=== PATIENT | male | born 1945 | race Caucasian/White ===

== ENCOUNTER → 2016-06-29 | Outpatient (CLI) | payer OTHER ==
[~2016-06-29] MED LIST: ALLOPURINOL 30300 M2 PO; BYSTOLIC10 MG PO; CHLORTHALIDONE25 MG PO; GLUCOPHAGE XR500 MG PO; LESCOL XL80 MG PO; QUINU10 PD PO; VITAMINC500 PO; [UNRECOGNIZED DRUG - OTHER] PO
== END ==
LOC: HYPER 07:13
DX: I87.313 Chronic venous hypertension (idiopathic) with ulcer of bilateral lower extremity (principal); L97.821 Non-pressure chronic ulcer of other part of left lower leg limited to breakdown of skin; E11.622 Type 2 diabetes mellitus with other skin ulcer; L97.811 Non-pressure chronic ulcer of other part of right lower leg limited to breakdown of skin; I89.0 Lymphedema, not elsewhere classified; M10.9 Gout, unspecified; E78.5 Hyperlipidemia, unspecified; E66.9 Obesity, unspecified; G47.33 Obstructive sleep apnea (adult) (pediatric); E11.51 Type 2 diabetes mellitus with diabetic peripheral angiopathy without gangrene; M19.90 Unspecified osteoarthritis, unspecified site

== ENCOUNTER → 2016-08-12 | Outpatient (CLI) | payer OTHER | LOC: HYPER 07:09 | DX: L89.890 Pressure ulcer of other site, unstageable (principal); I87.311 Chronic venous hypertension (idiopathic) with ulcer of right lower extremity; L97.111 Non-pressure chronic ulcer of right thigh limited to breakdown of skin; E11.622 Type 2 diabetes mellitus with other skin ulcer; I89.0 Lymphedema, not elsewhere classified; M10.9 Gout, unspecified; E78.5 Hyperlipidemia, unspecified; G47.33 Obstructive sleep apnea (adult) (pediatric); I73.9 Peripheral vascular disease, unspecified; M19.90 Unspecified osteoarthritis, unspecified site; Z98.49 Cataract extraction status, unspecified eye ==

== ENCOUNTER → 2016-09-11 | Outpatient (CLI) | payer OTHER | LOC: HYPER 08:06 | DX: I87.311 Chronic venous hypertension (idiopathic) with ulcer of right lower extremity (principal); E11.622 Type 2 diabetes mellitus with other skin ulcer; L97.111 Non-pressure chronic ulcer of right thigh limited to breakdown of skin; I89.0 Lymphedema, not elsewhere classified; R60.9 Edema, unspecified; E78.5 Hyperlipidemia, unspecified; E66.9 Obesity, unspecified; E11.51 Type 2 diabetes mellitus with diabetic peripheral angiopathy without gangrene; M19.90 Unspecified osteoarthritis, unspecified site ==

== ENCOUNTER → 2016-10-06 | Outpatient (CLI) | payer OTHER | LOC: HYPER 07:02 | DX: I87.311 Chronic venous hypertension (idiopathic) with ulcer of right lower extremity (principal); E11.622 Type 2 diabetes mellitus with other skin ulcer; L97.811 Non-pressure chronic ulcer of other part of right lower leg limited to breakdown of skin; I89.0 Lymphedema, not elsewhere classified; R60.0 Localized edema; E78.5 Hyperlipidemia, unspecified; E66.9 Obesity, unspecified; M19.90 Unspecified osteoarthritis, unspecified site ==

== ENCOUNTER → 2016-10-16 | Outpatient (CLI) | payer OTHER | LOC: HYPER 07:51 | DX: L89.890 Pressure ulcer of other site, unstageable (principal); I87.311 Chronic venous hypertension (idiopathic) with ulcer of right lower extremity; L97.312 Non-pressure chronic ulcer of right ankle with fat layer exposed; E11.622 Type 2 diabetes mellitus with other skin ulcer; E11.51 Type 2 diabetes mellitus with diabetic peripheral angiopathy without gangrene; I89.0 Lymphedema, not elsewhere classified; M10.9 Gout, unspecified; E78.5 Hyperlipidemia, unspecified; E66.9 Obesity, unspecified; G47.33 Obstructive sleep apnea (adult) (pediatric); M19.90 Unspecified osteoarthritis, unspecified site; Z68.41 Body mass index [BMI] 40.0-44.9, adult; Z98.49 Cataract extraction status, unspecified eye; Z79.4 Long term (current) use of insulin; Z79.84 Long term (current) use of oral hypoglycemic drugs ==

== ENCOUNTER → 2016-10-21 | Outpatient (CLI) | payer OTHER | LOC: HYPER 06:55 | DX: E11.622 Type 2 diabetes mellitus with other skin ulcer (principal); L97.312 Non-pressure chronic ulcer of right ankle with fat layer exposed; I87.311 Chronic venous hypertension (idiopathic) with ulcer of right lower extremity; E11.621 Type 2 diabetes mellitus with foot ulcer; L97.511 Non-pressure chronic ulcer of other part of right foot limited to breakdown of skin; L89.899 Pressure ulcer of other site, unspecified stage; I89.0 Lymphedema, not elsewhere classified; Z79.84 Long term (current) use of oral hypoglycemic drugs; Z79.4 Long term (current) use of insulin ==

== ENCOUNTER → 2016-10-29 | Outpatient (CLI) | payer OTHER | LOC: HYPER 06:57 | DX: E11.621 Type 2 diabetes mellitus with foot ulcer (principal); L97.511 Non-pressure chronic ulcer of other part of right foot limited to breakdown of skin; I87.311 Chronic venous hypertension (idiopathic) with ulcer of right lower extremity; E11.622 Type 2 diabetes mellitus with other skin ulcer; L97.312 Non-pressure chronic ulcer of right ankle with fat layer exposed; I89.0 Lymphedema, not elsewhere classified; R60.0 Localized edema; M19.90 Unspecified osteoarthritis, unspecified site; Z79.4 Long term (current) use of insulin; Z79.84 Long term (current) use of oral hypoglycemic drugs ==

== ENCOUNTER → 2016-11-05 | Outpatient (CLI) | payer OTHER | LOC: HYPER 07:00 | DX: E11.622 Type 2 diabetes mellitus with other skin ulcer (principal); L97.312 Non-pressure chronic ulcer of right ankle with fat layer exposed; I89.0 Lymphedema, not elsewhere classified; I87.311 Chronic venous hypertension (idiopathic) with ulcer of right lower extremity; E78.5 Hyperlipidemia, unspecified; E66.9 Obesity, unspecified; Z68.41 Body mass index [BMI] 40.0-44.9, adult; G47.33 Obstructive sleep apnea (adult) (pediatric); E11.51 Type 2 diabetes mellitus with diabetic peripheral angiopathy without gangrene; M19.90 Unspecified osteoarthritis, unspecified site; Z79.4 Long term (current) use of insulin; Z79.84 Long term (current) use of oral hypoglycemic drugs ==

== ENCOUNTER → 2016-11-17 | Outpatient (CLI) | payer OTHER | LOC: HYPER 07:04 | DX: I87.311 Chronic venous hypertension (idiopathic) with ulcer of right lower extremity (principal); E11.622 Type 2 diabetes mellitus with other skin ulcer; L97.312 Non-pressure chronic ulcer of right ankle with fat layer exposed; I89.0 Lymphedema, not elsewhere classified; R60.0 Localized edema; Z79.4 Long term (current) use of insulin; Z79.84 Long term (current) use of oral hypoglycemic drugs; E78.5 Hyperlipidemia, unspecified; E11.51 Type 2 diabetes mellitus with diabetic peripheral angiopathy without gangrene; M19.90 Unspecified osteoarthritis, unspecified site ==

== ENCOUNTER → 2016-12-01 | Outpatient (CLI) | payer OTHER | LOC: HYPER 07:09 | DX: E11.622 Type 2 diabetes mellitus with other skin ulcer (principal); L97.312 Non-pressure chronic ulcer of right ankle with fat layer exposed; I89.0 Lymphedema, not elsewhere classified; E78.5 Hyperlipidemia, unspecified; E66.9 Obesity, unspecified; G47.33 Obstructive sleep apnea (adult) (pediatric); E11.51 Type 2 diabetes mellitus with diabetic peripheral angiopathy without gangrene; M19.90 Unspecified osteoarthritis, unspecified site; I87.2 Venous insufficiency (chronic) (peripheral); Z79.84 Long term (current) use of oral hypoglycemic drugs; Z79.4 Long term (current) use of insulin ==

== ENCOUNTER → 2017-01-19 | Outpatient (CLI) | payer OTHER | LOC: HYPER 06:46 | DX: E11.622 Type 2 diabetes mellitus with other skin ulcer (principal); L97.312 Non-pressure chronic ulcer of right ankle with fat layer exposed; L97.821 Non-pressure chronic ulcer of other part of left lower leg limited to breakdown of skin; I87.313 Chronic venous hypertension (idiopathic) with ulcer of bilateral lower extremity; I89.0 Lymphedema, not elsewhere classified; E78.5 Hyperlipidemia, unspecified; E66.9 Obesity, unspecified; G47.33 Obstructive sleep apnea (adult) (pediatric); E11.51 Type 2 diabetes mellitus with diabetic peripheral angiopathy without gangrene; M19.90 Unspecified osteoarthritis, unspecified site; Z79.4 Long term (current) use of insulin; Z79.84 Long term (current) use of oral hypoglycemic drugs; Z68.41 Body mass index [BMI] 40.0-44.9, adult ==

== ENCOUNTER → 2017-03-02 | Outpatient (CLI) | payer OTHER ==
[~2017-03-02] MED LIST changes: +ASPIRIN81 M2 PO; +CARDURA4 MG PO; +CENTRUM SILVER1 EAC4 PO; +ERGOCALCIF50000 UNIT PO; +HOME MEDICATION SUBQ; +HUMALOG100 UNIT/1 SUBQ; +IRON325 PO; +KLOR-CON M2020 MEQ PO; +LANTUS100 UNIT/M SUBQ; +LASIX 20 MG TAB20 MG PO; +LOSARTAN POTASS50 MG PO; +MAGOX 400400 MG PO; +METFORMIN HCL500 MG PO; +PROTONIX 20 MG20 M1 PO; +TYLENOL EXTRA500 MG PO; +VOLTAREN GEL 1100 G2 TOP
== END ==
LOC: HYPER 07:01
DX: I87.313 Chronic venous hypertension (idiopathic) with ulcer of bilateral lower extremity (principal); L97.811 Non-pressure chronic ulcer of other part of right lower leg limited to breakdown of skin; L97.822 Non-pressure chronic ulcer of other part of left lower leg with fat layer exposed; L97.312 Non-pressure chronic ulcer of right ankle with fat layer exposed; I89.0 Lymphedema, not elsewhere classified; E11.622 Type 2 diabetes mellitus with other skin ulcer; M10.9 Gout, unspecified; E78.5 Hyperlipidemia, unspecified; E66.9 Obesity, unspecified; G47.33 Obstructive sleep apnea (adult) (pediatric); E11.51 Type 2 diabetes mellitus with diabetic peripheral angiopathy without gangrene; M19.90 Unspecified osteoarthritis, unspecified site; Z86.12 Personal history of poliomyelitis; Z79.4 Long term (current) use of insulin; Z79.84 Long term (current) use of oral hypoglycemic drugs; Z98.49 Cataract extraction status, unspecified eye

== ENCOUNTER → 2017-03-31 | Outpatient (CLI) | payer OTHER | LOC: HYPER 03-16 11:44 | DX: I87.313 Chronic venous hypertension (idiopathic) with ulcer of bilateral lower extremity (principal); L97.822 Non-pressure chronic ulcer of other part of left lower leg with fat layer exposed; L97.811 Non-pressure chronic ulcer of other part of right lower leg limited to breakdown of skin; L97.312 Non-pressure chronic ulcer of right ankle with fat layer exposed; I89.0 Lymphedema, not elsewhere classified; E11.622 Type 2 diabetes mellitus with other skin ulcer; E78.5 Hyperlipidemia, unspecified; E66.9 Obesity, unspecified; G47.33 Obstructive sleep apnea (adult) (pediatric); E11.51 Type 2 diabetes mellitus with diabetic peripheral angiopathy without gangrene; M19.90 Unspecified osteoarthritis, unspecified site; Z86.12 Personal history of poliomyelitis; Z79.4 Long term (current) use of insulin; Z79.84 Long term (current) use of oral hypoglycemic drugs; Z98.49 Cataract extraction status, unspecified eye ==

== ENCOUNTER 2017-04-05 13:31 | Inpatient (IN) | payer OTHER ==
[~2017-04-05] VITALS: Ht 175.3 cm; Wt 99.4 kg
--- NOTE | ~2017-04-05 | HC ---
[facility] [place] [address] [place] [address] CONSULTATION Name: AISLINN GONZALEZ Room #: 408-P ADM IN M.R.#: [id number] Admission: 04/05/17 Attend Phys: Daren Hawley MD Discharge: Date of : 43 Report #: [id number] THIS REPORT FOR: //name// CC: Daren Castañeda MD DATE OF SERVICE: 04/06/2017 REASON FOR CONSULTATION: Antibiotic management. HISTORY OF PRESENT ILLNESS: A 71-year-old white man with chronic lymphedema and stasis ulcerations legs, infected, colonized with methicillin-resistant Staphylococcus aureus and Pseudomonas aeruginosa, is admitted and started on Fortaz and vancomycin. Dressings have not been changed on legs since last Wednesday and the entire room smells and reeks with foul odor. The patient denies systemic symptoms, though he had low-grade fever here in the hospital. PAST MEDICAL HISTORY: Diabetes mellitus for many years. Bilateral lower extremities ulceration with stasis ulceration for which he visits with Dr. Justen Castañeda and last culture revealed growth of Pseudomonas aeruginosa and methicillin-resistant Staphylococcus aureus. Acute kidney injury on chronic kidney disease. DRUG ALLERGIES: INSULIN ASPART, RASH. LEVOFLOXACIN, UNKNOWN. SULFA, RASH. ATORVASTATIN, UNKNOWN. MEDICATIONS: The patient is currently on treatment with vancomycin 500 mg IV daily, ceftazidime 1 gram IV daily, heparin 5000 units subQ t.i.d., glucose glucagon p.r.n., morphine sulfate p.r.n., hydrocodone p.r.n., ondansetron p.r.n., intravenous fluids. The metformin has been stopped, discontinued in view of acute kidney injury. SOCIAL HISTORY: . Three daughters. Lives with . REVIEW OF SYSTEMS: Essentially noncontributory. PHYSICAL EXAMINATION: GENERAL: Well-developed, overweight man, not toxic looking. VITAL SIGNS: Temperature maximum 100, pulse 81, respirations 18, BP 105/48, height 5 feet 9 inches, weight 220 pounds. HEENMT: Within range. NECK: Supple. LUNGS: Clear. [facility] [address] [place] [address] CONSULTATION Name: AISLINN GONZALEZ CARO Room #: 408-P ADM IN M.R.#: [id number] Admission: 04/05/17 Attend Phys: Daren Hawley MD Discharge: Date of : 43 Report #: [id number] HEART: S1, S2. ABDOMEN: Soft, no masses or megaly. GENITALIA AND RECTAL: Deferred. EXTREMITIES: Ulceration legs with profuse serous type drainage with extreme foul odor. The lesions on legs are cultured. Dressings reapplied and wounds to be reviewed by wound care team yet. NEUROLOGIC: Grossly within normal limits. LABORATORY DATA: Sodium 143, potassium 5.4, chloride 115, CO2 of 15, BUN 111, creatinine 3.3, glucose 179. WBC 7000, hemoglobin 9 g/dL, platelets 185,000. Hemoglobin A1c pending. Blood cultures obtained and result pending at the time of this dictation. ASSESSMENT: 1. Lymphedema with stasis ulceration both legs, infected, colonized with Pseudomonas aeruginosa and methicillin-resistant Staphylococcus and possible anaerobes. 2. Diabetes mellitus. 3. Acute kidney injury on chronic kidney disease. 4. Anemia of chronic disease. 5. SULFA, LEVAQUIN, ATORVASTATIN, INSULIN ASPART ALLERGY INTOLERANCE. SUGGESTIONS: Recommend continue treatment with vancomycin to be dosed by pharmacy. Add Fortaz 1 gram IV daily, clindamycin 600 mg IV every 8 hours. Routine anaerobic culture of leg ulcer. Intravenous fluids. Nephrology consultation. Dr. Hawley, thank you for requesting my suggestions in the care of your patient. <ELECTRONICALLY SIGNED> By: Torres Gates MD 04/06/17 1150 [id number] 1101 Torres Gates MD /nt
--- NOTE | ~2017-04-05 | HC ---
[facility] [place] [place] [place] [address] CONSULTATION Name: AISLINN GONZALEZ Room #: 408-P [facility] IN M.R.#: [id number] Admission: 04/05/17 Attend Phys: Daren Hawley MD Discharge: 04/09/17 Date of : 43 Report #: [id number] THIS REPORT FOR: //name// CC: Daren Stark DATE OF SERVICE: 04/08/2017 HISTORY OF PRESENT ILLNESS: The patient is a 71-year-old white male who was admitted from the wound care clinic with bilateral lower extremity cellulitis. He was noted to have MRSA and Pseudomonas aeruginosa. He also had acute renal insufficiency with creatinine up to 3.9. He was noted to have phimosis with urinary retention and Urology has been involved along with Nephrology. A James catheter was placed and this is being monitored until his acute renal insufficiency further improves. Infectious Disease is seeing him and he has bilateral lower extremity cellulitis and is on IV antibiotics. He does have bilateral lower extremity lymphedema. We are seeing him in rehabilitation medicine consultation. PAST MEDICAL HISTORY: Includes gout, hypertension, diabetes mellitus, lymphedema. MEDICATIONS: Please see the full medication listing. ALLERGIES: INSULIN, LEVAQUIN, SULFA, ATORVASTATIN. HABITS: No history of tobacco or alcohol abuse. SOCIAL HISTORY: Lives with , daughter. Used a cane, premorbidly 2 steps in. There is a basement inside. REVIEW OF SYSTEMS: Did not offer any current complaints of chest pain, shortness of breath or abdominal discomfort. He has some discomfort as expected of both lower extremities. PHYSICAL EXAMINATION: GENERAL: A 71-year-old white male in no obvious distress. VITAL SIGNS: Last recorded temperature is 98, pulse 96, respirations 18, blood pressure 156/99. NEUROLOGIC: The patient is alert, pleasant, detail focused regarding his care. Facies are symmetric. EXTREMITIES: He has functional range of motion of both upper extremities with trace edema. Strength is probably grade 4-/5. DTRs are trace to 1. Lower extremities, bilateral legs are dressed. He can dorsiflex his ankles. Strength of the lower extremities is probably a grade 3+ to 4-/5. He is min assist with sit to stand. Gait is 2 steps, mod assist with a front-wheeled walker. [address] [address] CONSULTATION Name: AISLINN GONZALEZ Room #: [facility] IN M.R.#: [id number] Admission: 04/05/17 Attend Phys: Daren Hawley MD Discharge: 04/09/17 Date of : 43 Report #: [id number] ASSESSMENT: A 71-year-old white male with the following problems: 1. Medical complex with generalized debilitation. 2. Bilateral lower extremity cellulitis. 3. Acute renal insufficiency. 4. Phimosis with urinary retention, status post James placement by Urology. 5. Diabetes mellitus type 2. 6. Bilateral lower extremity wounds with MRSA and pseudomonas. 7. Bilateral lower extremity lymphedema. 8. Hypertension. 9. Hyperuricemia. PLAN: We are assessing the patient to see if he is a candidate for an acute inpatient rehabilitation stay. We will discuss further with the rehabilitation therapy staff and we will follow up with you. Thank you for asking us to assist in this patient's care. <ELECTRONICALLY SIGNED> By: Kendrick Stephens MD 04/13/17 1553 0903 1449 Kendrick Stephens MD /[facility]
--- NOTE | ~2017-04-05 | HC ---
[facility] [place] [address] [place] [address] CONSULTATION Name: LISAAISLINN ELIZONDO Room #: 408-P [place] IN M.R.#: [id number] Admission: 04/05/17 Attend Phys: Daren Hawley MD Discharge: 04/09/17 Date of : 43 Report #: [id number] THIS REPORT FOR: //name// CC: Daren Stark REASON FOR CONSULTATION: Elevated creatinine. HISTORY OF PRESENT ILLNESS: A 71-year-old with past medical history of hypertension. He sees Dr. Justen Castañeda for his lymphedema and lower extremity issues. For the last week or so, he has had some discharge from his wound, associated with bleeding from the debridement site. He was started on some sort of p.o. antibiotic. However, the symptoms never improved. He had those wound issues for years and years. He called the Wound Care Clinic today and was sent to the emergency room for further evaluation and management because of failed outpatient therapy. No fever or chills. He is known to have diabetes mellitus and is maintained on metformin, quinapril. On presentation to the Emergency Room, he was found to have an elevated creatinine at 3.9, that had improved to 3.3 today. He is not aware of any previous kidney problems. His creatinine back in 2014 was 1.4. He sees Dr. Ambrose Stark and he told me that he has never been told that he had issues with his kidney problems. PAST MEDICAL HISTORY: 1. Diabetes mellitus. 2. Hypertension. 3. Lymphedema. 4. Venous stasis. 5. Status post tonsillectomy. 6. Gout. SOCIAL HISTORY: Never a smoker. No drug or alcohol abuse. He lives with his . MEDICATIONS: 1. Metformin. 2. Lescol. 3. Quinapril. 4. Chlorthalidone. 5. Bystolic. 6. Allopurinol. FAMILY HISTORY: He denies any chronic medical problems in his family. REVIEW OF SYSTEMS: GENERAL: No fever or chills. CARDIOVASCULAR: No chest pain. No palpitation. PULMONARY: No cough or hemoptysis. [facility] [address] [place] [address] CONSULTATION Name: AISLINN GONZALEZ Room #: 408-P [place] IN M.R.#: [id number] Admission: 04/05/17 Attend Phys: aDren Hawley MD Discharge: 04/09/17 Date of : 43 Report #: [id number] GASTROINTESTINAL: No nausea or vomiting. GENITOURINARY: No frequency, no urgency. PHYSICAL EXAMINATION: GENERAL: He is alert, oriented, in no apparent distress. VITAL SIGNS: Blood pressure 122/48. He did have some low blood pressure reading yesterday. HEAD AND NECK: No jugular venous distention, no bruit, no thyromegaly. CHEST: Decreased air entry bilaterally. CARDIOVASCULAR: Regular, with no rub. ABDOMEN: Soft, nontender with a distended bladder. LOWER EXTREMITIES: Foul-smelling discharge from both lower extremities with chronic edema and chronic venous stasis. LABORATORY DATA: Laboratory values reviewed. Creatinine is 3.9, BUN is 111. Chloride is 115, bicarbonate is 15. ESR is significantly elevated at 125. Urine sample is pending. ASSESSMENT, IMPRESSION AND PLAN: 1. Acute kidney injury with retention. 2. Hypertension. 3. Chronic lymphedema, venous stasis, cellulitic changes. 4. Anemia. 5. Hypertension. 6. Diabetes mellitus. 7. Multifactorial acute kidney injury due to retention and hypertension. 8. We will send appropriate acute kidney injury workup. 9. Hold metformin, chlorthalidone and quinapril. 10. Place stat James catheter. 11. Continue with gentle IV hydration. 12. Cultures obtained. 13. Antibiotic per ID. 14. Obtain his outpatient medical record from his primary care physician to decide about his baseline kidney function. <ELECTRONICALLY SIGNED> By: Chavo Key MD 04/11/17 1810 [id number] Chavo Key MD /nt
--- NOTE | ~2017-04-05 | HC ---
[facility] [place] [address] [place] [address] CONSULTATION Name: AISLINN GONZALEZ Room #: 408-P ADM IN M.R.#: [id number] Admission: 04/05/17 Attend Phys: Daren Hawley MD Discharge: Date of : 43 Report #: [id number] THIS REPORT FOR: //name// CC: Daren Stark DATE OF SERVICE: 04/06/2017 CHIEF COMPLAINT: Infected lower extremity ulcerations. HISTORY OF PRESENT ILLNESS: This is a 71-year-old white male patient with whom we are familiar from the outpatient wound care center. He has been followed by my partner, Dr. Castañeda. He was recently noted to have a pseudomonas infection; however, he has an allergy to quinolones; therefore, there were no oral options. He noted he was getting worse and was admitted through the hospital and is here for further evaluation and treatment. The patient does complain of pain and drainage of both lower extremities. PAST MEDICAL HISTORY: Positive for diabetes mellitus, bilateral lymphedema, stasis dermatitis and chronic ulcerations. ALLERGIES: SULFA and LEVAQUIN. FAMILY HISTORY: Noncontributory. REVIEW OF SYSTEMS: CONSTITUTIONAL: The patient denies fever, chills or weight loss. NEUROLOGICAL: The patient denies focal weakness, numbness or tingling. EYES: The patient denies any visual changes, redness or drainage. ENT: The patient denies earache, nasal drainage or sore throat. CARDIOVASCULAR: The patient denies chest pain, palpitations or diaphoresis. PULMONARY: No cough or shortness of breath. GASTROINTESTINAL: The patient denies nausea, vomiting, diarrhea or abdominal pain. ORTHOPEDIC: The patient complains of pain, drainage and swelling in both lower extremities. Other systems in a 14-point review of systems are negative. PHYSICAL EXAMINATION: VITAL SIGNS: At this time include pulse 80, respirations 18, blood pressure 122/40 and temperature 97.0. GENERAL: This is a chronically ill-appearing male patient who appears to be in minimal distress. HEENT: Normocephalic. Nose and throat are clear. NECK: Supple. LUNGS: Clear. HEART: Regular. [facility] [address] [place] [address] CONSULTATION Name: AISLINN GONZALEZ Room #: 408-P [facility] IN M.R.#: [id number] Admission: 04/05/17 Attend Phys: Daren Hawley MD Discharge: Date of : 43 Report #: [id number] ABDOMEN: Soft. Bowel sounds present. EXTREMITIES: Demonstrate diminished but palpable distal pulses. He has large ulcerations on both lower legs. These are more or less circumferential. There is moderate drainage, moderate yellow fibrin present, some slough. No exposed deep structures. LABORATORY DATA: Include sodium 143, potassium 5.4, chloride 115, CO2 15, BUN 111 and creatinine is quite elevated at 3.3. White blood cell count 7000 with hemoglobin 9.0 and hematocrit 27.9 and platelet count 185,000. Sed rate is elevated at 125. Hemoglobin A1c is 5.8. CRP is elevated at 68.2. Lactic acid 0.8. CLINICAL IMPRESSION: 1. Chronic venous stasis ulcerations, bilateral lower extremities. 2. Cellulitis and wound infection, bilateral lower extremities. 3. Diabetes mellitus. 4. Severe debility. RECOMMENDATIONS: At this point in time, we will recommend pulsatile lavage. We will recommend topical quarter strength Dakin's moist gauze to the open areas then wrapped with Kerlix and Guilherme wraps and elevation of bilateral lower extremities. Recommend intravenous antibiotic therapy. I appreciate being asked to see him in consultation. <ELECTRONICALLY SIGNED> By: Mike Scott MD 04/07/17 1725 1856 2147 Mike Scott MD /nt
[~2017-04-05 13:31] MED LIST changes: -ASPIRIN81 M2 PO; -CARDURA4 MG PO; -CENTRUM SILVER1 EAC4 PO; -ERGOCALCIF50000 UNIT PO; -HOME MEDICATION SUBQ; -HUMALOG100 UNIT/1 SUBQ; -IRON325 PO; -KLOR-CON M2020 MEQ PO; -LANTUS100 UNIT/M SUBQ; -LASIX 20 MG TAB20 MG PO; -LOSARTAN POTASS50 MG PO; -MAGOX 400400 MG PO; -METFORMIN HCL500 MG PO; -PROTONIX 20 MG20 M1 PO; -TYLENOL EXTRA500 MG PO; -VOLTAREN GEL 1100 G2 TOP
[2017-04-05 13:43] VITALS: BP 105/35
[2017-04-05 16:05] LABS: ABSOLUTE NEUTROPHILS 5.7 thou/uL (1.4-8.2); BASOPHILS 0.9 % (0.0-2.0); EOSINOPHILS 1.3 % (0.0-3.0); HEMATOCRIT 26.7 % (42.0-52.0); HEMOGLOBIN 8.5 gm/dL (14.0-18.0); LYMPHOCYTES 15.8 % (24.0-44.0); MCH 30.7 pg (26.0-34.0); MCHC 31.9 g/dL (28.0-37.0); MCV 96.3 fL (80.0-100.0); MONOCYTES 8.3 % (1.0-8.0); PLATELET COUNT 165 thou/uL (150-400); POLYS 73.7 % (36.0-66.0); RBC 2.77 mil/uL (4.50-6.00); RDW 17.2 % (10.5-14.5); WBC 7.8 thou/uL (4.0-11.0)
[2017-04-05 16:13] LABS: CALCIUM 9.1 mg/dL (8.5-10.1); CREATININE 3.9 mg/dL (0.7-1.3); POTASSIUM 5.6 mmol/L (3.5-5.1)
[2017-04-05 16:55] VITALS: BP 99/41
[2017-04-05 17:23] VITALS: BP 122/62
[2017-04-05 20:42] VITALS: BP 116/50
[2017-04-06 04:51] VITALS: BP 109/47
[2017-04-06 05:17] LABS: HEMATOCRIT 27.9 % (42.0-52.0); MCHC 32.2 g/dL (28.0-37.0); MCV 96.2 fL (80.0-100.0); RBC 2.91 mil/uL (4.50-6.00); RDW 17.1 % (10.5-14.5)
[2017-04-06 05:28] LABS: CALCIUM 9.1 mg/dL (8.5-10.1); CREATININE 3.3 mg/dL (0.7-1.3); POTASSIUM 5.4 mmol/L (3.5-5.1)
[2017-04-06 09:53] VITALS: BP 105/48
[2017-04-06 17:09] LABS: GLYCOHEMOGLOBIN (HGB A1C) 5.8 % (4.8-5.6)
[2017-04-06 17:20] VITALS: BP 122/48
[2017-04-06 18:40] LABS: URINE BILIRUBIN NEGATIVE (Negative); URINE BLOOD TRACE (Negative); URINE CLARITY CLEAR; URINE COLOR YELLOW; URINE GLUCOSE-RANDOM* NEGATIVE (Negative); URINE KETONES NEGATIVE (Negative); URINE LEUKOCYTES NEGATIVE (Negative); URINE NITRITE NEGATIVE (Negative); URINE PROTEIN (DIPSTICK) NEGATIVE (Negative); URINE SPECIFIC GRAVITY 1.015 (1.005-1.035); URINE UROBILINOGEN 0.2 E.U./dl (0.2-1.0)
[2017-04-06 18:44] LABS: URINE CREATININE-RANDOM* 33.5 mg/dL
[2017-04-06 19:43] VITALS: BP 124/47
[2017-04-07 04:06] VITALS: BP 129/42
[2017-04-07 06:08] LABS: CREATININE 2.2 mg/dL (0.7-1.3)
[2017-04-07 07:44] VITALS: BP 119/50
[2017-04-07 15:23] VITALS: BP 104/51
[2017-04-07 19:40] VITALS: BP 120/52
[2017-04-08 04:00] VITALS: BP 128/82
[2017-04-08 05:39] LABS: ALBUMIN 1.9 g/dL (3.4-5.0); CALCIUM 8.8 mg/dL (8.5-10.1); CREATININE 1.8 mg/dL (0.7-1.3); PHOSPHORUS 2.5 mg/dL (2.5-4.9); POTASSIUM 4.9 mmol/L (3.5-5.1)
[2017-04-08 08:46] VITALS: BP 156/99
[2017-04-08 16:45] VITALS: BP 104/61
[2017-04-08 19:47] VITALS: BP 123/54
[2017-04-09 04:00] VITALS: BP 119/55
[2017-04-09 04:20] LABS: ALBUMIN 1.9 g/dL (3.4-5.0); CALCIUM 8.2 mg/dL (8.5-10.1); CREATININE 1.5 mg/dL (0.7-1.3); PHOSPHORUS 2.4 mg/dL (2.5-4.9); POTASSIUM 4.6 mmol/L (3.5-5.1)
[2017-04-09 07:12] VITALS: BP 129/50
[2017-04-09] MEDS ORDERED: CARDURA4 MG PO (12:16)
[2017-04-09 15:40] VITALS: BP 122/44
== END 2017-04-09 17:13 | DRG 602 ==
LOC: ER 13:31 → EROBS 15:24 → 4N 15:24
PROVIDERS: Emergency Medicine; Hospitalist; Internal Medicine Nephrology
DX: L03.116 Cellulitis of left lower limb (principal); N17.0 Acute kidney failure with tubular necrosis; E87.2 Acidosis; E44.0 Moderate protein-calorie malnutrition; L03.115 Cellulitis of right lower limb; M10.9 Gout, unspecified; E86.0 Dehydration; E87.5 Hyperkalemia; N18.9 Chronic kidney disease, unspecified; E11.22 Type 2 diabetes mellitus with diabetic chronic kidney disease; I12.9 Hypertensive chronic kidney disease with stage 1 through stage 4 chronic kidney disease, or unspecified chronic kidney disease; D63.8 Anemia in other chronic diseases classified elsewhere; I87.2 Venous insufficiency (chronic) (peripheral); N47.1 Phimosis; I89.0 Lymphedema, not elsewhere classified; R33.9 Retention of urine, unspecified; Z79.899 Other long term (current) drug therapy; Z88.1 Allergy status to other antibiotic agents; Z88.2 Allergy status to sulfonamides; Z88.8 Allergy status to other drugs, medicaments and biological substances; Z90.49 Acquired absence of other specified parts of digestive tract; Z68.32 Body mass index [BMI] 32.0-32.9, adult
CPT/HCPCS: 10091

== ENCOUNTER 2017-04-09 11:30 | Inpatient (IN) | payer OTHER ==
[~2017-04-09] VITALS: Ht 162.6 cm; Wt 95.3 kg
--- NOTE | ~2017-04-09 | H ---
[facility] [place] [place] [address] HISTORY AND PHYSICAL Name: AISLINN GONZALEZ Room #: 506-1 ADM IN M.R.#: [id number] Admission: 04/09/17 Attend Phys: Kendrick Stephens MD Discharge: Date of : 43 Report #: [id number] THIS REPORT FOR: //name// CC: Ambrose Stephens DATE OF SERVICE: 04/09/2017 HISTORY OF PRESENT ILLNESS: The patient is a 71-year-old white male originally admitted from the wound care clinic with bilateral lower extremity cellulitis. He was noted to have MRSA and Pseudomonas aeruginosa. He also had acute renal insufficiency with a creatinine up to 3.9. He was noted to have phimosis with urinary retention and urology was involved along with Nephrology. A James catheter was placed, which was being monitored until his acute renal insufficiency further improves. Infectious Disease has been seeing him and he was noted to have bilateral lower extremity cellulitis and has been on IV antibiotics. He was noted to have bilateral lower extremity lymphedema. He was noted to have a significant functional decline from his premorbid status and he has now been admitted for acute in-hospital inpatient rehabilitation. PAST MEDICAL HISTORY: Gout, hypertension, diabetes mellitus, and lymphedema. MEDICATIONS: Please see the full medication listing. Each of these was individually reconciled and includes vitamins, herbals and supplements. ALLERGIES: INSULIN, LEVAQUIN, SULFA, ATORVASTATIN. HABITS: No history of tobacco or alcohol abuse. SOCIAL HISTORY: Lives with his and daughter. House, there is a basement inside. He used a cane. Two steps in. REVIEW OF SYSTEMS: No current complaints of chest pain, shortness of breath, or abdominal discomfort. He has some discomfort as expected over his bilateral shins. PHYSICAL EXAMINATION: GENERAL: A 71-year-old white male in no obvious distress. He was seen earlier. VITAL SIGNS: Last recorded temperature is 36.9, pulse 100, respirations 18, blood pressure 122/49. Facies are symmetric. He was sleepy, but appeared appropriate. CHEST: Sounded clear to auscultation. CARDIOVASCULAR: Regular rate and rhythm. ABDOMEN: Bowel sounds positive, nontender. GENITOURINARY AND RECTAL: Deferred. EXTREMITIES: He has functional range of motion of both upper extremities with [facility] [address] [place] [address] HISTORY AND PHYSICAL Name: AISLINN GONZALEZ Room #: 506-1 [facility] IN ..#: [id number] Admission: 04/09/17 Attend Phys: Kendrick Stephens MD Discharge: Date of : 43 Report #: [id number] trace edema. Strength is grade 4-/5. DTRs are trace to 1. Lower extremities. Bilateral legs were noted to be dressed. He can dorsiflex his ankles. Strength of the lower extremities is grade 3+ to 4-/5. He was min assist with sit to stand. Gait was 2 steps mod assist with a front-wheeled walker. ASSESSMENT: A 71-year-old white male with the following problem list: 1. Medical complexity with generalized debilitation. 2. Bilateral lower extremity cellulitis. 3. Acute renal insufficiency. 4. Phimosis with urinary retention, status post James placement by Urology. 5. Diabetes mellitus type 2. 6. Bilateral lower extremity wounds with methicillin-resistant Staphylococcus aureus and pseudomonas. 7. Bilateral lower extremity lymphedema. 8. Hypertension. 9. Hyperuricemia. PLAN: The patient was admitted for acute in-hospital inpatient rehabilitation. From a postadmission physician evaluation perspective, there are no relevant changes since the preadmission screening. Please see the above review of prior and current medical and functional conditions and comorbidities. Please see the patient's previous and current functional status. As far as risk of complications, the patient has multiple medical comorbidities as noted above. The initial plan of care involves the interdisciplinary acute inpatient rehabilitation program with goal of maximizing the patient's functional independence, so that the patient can hopefully return back to his prior living situation. Measurable functional goals would be for him to become modified independent with functional mobility and ambulation at least at the walker level if not, the cane. Prognosis is reasonably good. Estimated length of stay is probably at least 10 days to 2 weeks and potentially longer if needed. Potential barriers would include the pain with the wound care issues, his functional mobility deficits, and medical comorbidities. The patient meets diagnostic criteria for an acute in-hospital inpatient rehabilitation stay. He meets medical necessity criteria and we will have the business continuity consultant physicians continue to follow along. He does have the tolerance for an acute inpatient rehabilitation program and has appropriate discharge goals back to the home setting. <ELECTRONICALLY SIGNED> By: Kendrick Stephens MD 04/13/17 1553 0938 1001 Kendrick Stephens MD /[facility]
--- NOTE | ~2017-04-09 | PLAN ---
[facility] [place] [address] [address] [place] [address] REHAB UNIT PLAN OF CARE Name: AISLINN GONZALEZ Room #: 506-1 ADM IN M.R.#: [id number] Admission: 04/09/17 Attend Phys: Kendrick Stephens MD Discharge: Date of : 43 Report #: [id number] THIS REPORT FOR: //name// CC: Ambrose Stephens DATE OF SERVICE: 04/12/2017 The patient is seen back today in followup. He is in no distress. Last recorded temperature 36.7, pulse 93, respirations 16, blood pressure 127/58. He has improved as far as he is voiding and was successful post-James catheter removal. He still needs considerable assistance with basic transfers and is max assist sit to stand. As far as gait once he is up he is ambulating 110 feet with a front-wheeled walker with mod assist. In occupational therapy, lower body dressing is moderate assistance. ASSESSMENT: 1. Medical complexity with generalized debilitation. 2. Bilateral lower extremity cellulitis. 3. Acute renal insufficiency. 4. Phimosis with urinary retention. James has been removed and he is voiding. 5. Diabetes mellitus type 2. 6. Bilateral lower extremity wounds with MRSA and pseudomonas. 7. Bilateral lower extremity lymphedema. 8. Hypertension. PLAN: The overall plan of care is based on the preadmission screen, post-admission physician evaluation and information garnered from therapy assessments. 1. Estimated length of stay is probably at least 10 days and likely longer. We will need to see how he does. 2. Medical prognosis is reasonably good. 3. Anticipated interventions includes the interdisciplinary acute inpatient rehabilitation program with PT and OT, rehab nursing assisting regarding the wound care issues, nursing education, bowel, bladder issues and the consultant [employer]. vice president [employer] (ex ) physicians are continuing to follow. 4. Anticipated functional outcomes would be for the patient to improve with transfers, mobility and ADLs that he can return back home at least at the walker level. 5. Discharge destination would be back home with his . 6. Expected therapy by discipline includes PT and OT 1-1/2 hours per day each [address] [address] REHAB UNIT PLAN OF CARE Name: AISLINN GONZALEZ Room #: 506-1 ADM IN M.R.#: [id number] Admission: 04/09/17 Attend Phys: Kendrick Stephens MD Discharge: Date of : 43 Report #: [id number] five days a week throughout the duration of the acute inpatient rehabilitation stay. <ELECTRONICALLY SIGNED> By: Kendrick Stephens MD 04/13/17 1554 0902 1519 Kendrick Stephens MD /[facility]
--- NOTE | ~2017-04-09 | HC ---
[facility] [place] [address] CONSULTATION Name: AISLINN GONZALEZ Room #: 506-1 ADM IN M.R.#: [id number] Admission: 04/09/17 Attend Phys: Kendrick Stephens MD Discharge: Date of : 43 Report #: [id number] THIS REPORT FOR: //name// CC: Ambrose Stephens DATE OF SERVICE: 04/11/2017 NEUROBEHAVIORAL STATUS EXAMINATION ATTENDING PHYSICIAN: Kendrick Stephens M.D. DIRECTOR OF INDUSTRIAL RELATIONS: Jeronimo Richter, PhD CLINICAL PRESENTATION: The patient is a 71-year-old male admitted to the [facility] Unit for a comprehensive inpatient rehabilitation program to improve functional mobility, activities of daily living and self-care, and mental status secondary to deficits from medical complexity and generalized debility. His diagnoses include bilateral lower extremity cellulitis, acute renal insufficiency, phimosis with urinary retention, diabetes mellitus type 2, bilateral lower extremity wounds with MRSA and pseudomonas, bilateral lower extremity lymphedema, hypertension and hyperuricemia. A complete description of his medical condition and history can be found in his medical record. The patient is . 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 He is a college graduate. The patient has 4 children. One child lives within the [place] area and the others live outside of the [facility]. His daughter is living with him. He had been with [facility] for 48 years. TECHNIQUES UTILIZED: Clinical interview, review of medical records, staff consultation and behavioral observation, mini mental status exam 2 standard version and calibrated ideational fluency assessment (letter and category). EXAMINATION FINDINGS: The patient was alert and cooperative with the assessment. There is no evidence of aphasia. His thoughts are logical and goal oriented. There is no evidence of thought disorder. He does not report suicidal ideation, auditory or visual hallucinations. He accurately described events surrounding his admission. He does not report difficulty with appetite, energy level or general cognitive functioning, although subtle difficulty in word finding is reported. Subjective feelings of anxiety and depression are reported. His primary complaint has to do with inconsistent sleep. His performance on the MMSE 2 brief version is within normal limits with a raw score of 15/16. His performance on the MMSE 2 standard version is within [facility] [address] [place] [address] CONSULTATION Name: AISLINN GONZALEZ Room #: 506-1 [facility] IN [facility]#: [id number] Admission: 04/09/17 Attend Phys: Kendrick Stephens MD Discharge: Date of : 43 Report #: [id number] normal limits with a raw score of 27/30. The patient was 4/5 for serial 7's. He could not copy a simple geometric design. Clock drawing is generally within normal limits; however, hand placement was incorrect and there is a significant upper extremity tremor that interferes with fine motor dexterity. Letter fluency is in the average range with a raw score of 23, T score of 42 and percentile rank of 21. Category fluency is in the borderline range with a raw score of 28, T score 34 and percentile rank of 5. Total verbal fluency is in the borderline range with a raw score of 51, T score 36 and percentile rank of 8. DIAGNOSTIC IMPRESSIONS: Mild neurocognitive disorder, unspecified, with intermittent irritability. Unspecified anxiety disorder with depressed mood. RECOMMENDATIONS: The patient will benefit from continued cognitive rehabilitation with a focus on compensatory strategies for memory and executive functioning. The use of a structured and consistent schedule will assist overall adjustment. The use of relaxation strategies, verbal praise and compliments about progress in therapies will assist his adjustment. Thank you very much for allowing me to provide the consultation on this patient. <ELECTRONICALLY SIGNED> By: Jeronimo Richter, PhD 04/12/17 1721 [id number] Jeronimo Richter, PhD /nt
[2017-04-09] MEDS ORDERED: CARDURA4 MG PO (12:16)
[2017-04-09 17:00] VITALS: BP 127/58
[2017-04-09 20:30] VITALS: BP 133/59
[2017-04-10 04:01] LABS: ALBUMIN 1.7 g/dL (3.4-5.0); CALCIUM 8.7 mg/dL (8.5-10.1); CREATININE 1.3 mg/dL (0.7-1.3); PHOSPHORUS 2.7 mg/dL (2.5-4.9); POTASSIUM 4.7 mmol/L (3.5-5.1)
[2017-04-10 08:00] VITALS: BP 122/49
[2017-04-10 19:15] VITALS: BP 115/54
[2017-04-10 19:25] VITALS: BP 131/59
[2017-04-11 06:06] LABS: ALBUMIN 1.8 g/dL (3.4-5.0); CALCIUM 8.8 mg/dL (8.5-10.1); CREATININE 1.3 mg/dL (0.7-1.3); PHOSPHORUS 2.7 mg/dL (2.5-4.9); POTASSIUM 4.4 mmol/L (3.5-5.1)
[2017-04-11 08:36] VITALS: BP 148/34
[2017-04-11 16:37] VITALS: BP 127/46
[2017-04-11 19:18] VITALS: BP 116/52
[2017-04-12 07:59] VITALS: BP 127/58
[2017-04-12 20:35] LABS: FOLIC ACID 19.4 ng/mL (8.6-58.9)
[2017-04-12 21:30] VITALS: BP 113/74
[2017-04-13 04:04] LABS: HEMATOCRIT 24.5 % (42.0-52.0); MCH 31.4 pg (26.0-34.0); MCHC 32.4 g/dL (28.0-37.0); MCV 96.9 fL (80.0-100.0); PLATELET COUNT 140 thou/uL (150-400); RBC 2.53 mil/uL (4.50-6.00); RDW 17.4 % (10.5-14.5)
[2017-04-13 04:17] LABS: ALBUMIN 1.8 g/dL (3.4-5.0); CALCIUM 8.6 mg/dL (8.5-10.1); CREATININE 1.3 mg/dL (0.7-1.3); MAGNESIUM 1.4 mg/dL (1.8-2.4); PHOSPHORUS 2.8 mg/dL (2.5-4.9)
[2017-04-13 06:39] LABS: ABSOLUTE NEUTROPHILS 3.6 thou/uL (1.4-8.2); ANISOCYTOSIS 1+; BLASTS 1 %; POLYCHROMASIA OCCASIONAL
[2017-04-13 08:15] VITALS: BP 112/59
[2017-04-13 19:50] VITALS: BP 102/44
[2017-04-14 08:15] VITALS: BP 113/50
[2017-04-14 19:45] VITALS: BP 108/46
[2017-04-15 08:46] VITALS: BP 118/53
[2017-04-15 20:49] VITALS: BP 116/54
[2017-04-16 09:59] VITALS: BP 114/48
[2017-04-16 11:09] LABS: HEMOGLOBIN 9.1 gm/dL (14.0-18.0); MCH 31.6 pg (26.0-34.0); MCHC 32.7 g/dL (28.0-37.0); MCV 96.8 fL (80.0-100.0); PLATELET COUNT 196 thou/uL (150-400); RBC 2.89 mil/uL (4.50-6.00); RDW 17.4 % (10.5-14.5); WBC 5.3 thou/uL (4.0-11.0)
[2017-04-16 11:20] LABS: CALCIUM 9.2 mg/dL (8.5-10.1); CREATININE 1.6 mg/dL (0.7-1.3); MAGNESIUM 1.5 mg/dL (1.8-2.4); POTASSIUM 3.9 mmol/L (3.5-5.1)
[2017-04-16 11:38] LABS: ABSOLUTE NEUTROPHILS 3.1 thou/uL (1.4-8.2); PLATELET ESTIMATE NORMAL
[2017-04-16 20:16] VITALS: BP 106/36
[2017-04-17 08:00] VITALS: BP 120/56
[2017-04-17 19:49] VITALS: BP 126/62
[2017-04-18 08:00] VITALS: BP 127/48
[2017-04-18 20:45] VITALS: BP 123/48
[2017-04-19 05:38] LABS: HEMATOCRIT 27.4 % (42.0-52.0); HEMOGLOBIN 8.9 gm/dL (14.0-18.0); MCH 31.7 pg (26.0-34.0); MCHC 32.5 g/dL (28.0-37.0); MCV 97.7 fL (80.0-100.0); PLATELET COUNT 201 thou/uL (150-400); RDW 18.2 % (10.5-14.5)
[2017-04-19 05:53] LABS: CALCIUM 8.9 mg/dL (8.5-10.1); CREATININE 1.1 mg/dL (0.7-1.3); MAGNESIUM 1.5 mg/dL (1.8-2.4)
[2017-04-19 06:49] LABS: ABSOLUTE NEUTROPHILS 2.2 thou/uL (1.4-8.2); ANISOCYTOSIS 1+
[2017-04-19 07:30] VITALS: BP 121/61
[2017-04-19 19:01] VITALS: BP 114/46
[2017-04-20 08:00] VITALS: BP 134/52
[2017-04-20 19:51] VITALS: BP 116/53
[2017-04-21 07:45] VITALS: BP 107/59
[2017-04-21 19:23] VITALS: BP 111/49
[2017-04-22 07:35] VITALS: BP 108/54
[2017-04-22 15:09] VITALS: BP 108/54
[2017-04-22] MEDS ORDERED: TYLENOL EXTRA500 MG PO (15:57)
[2017-04-22] MEDS ORDERED: ASPIRIN81 M2 PO (15:57)
[2017-04-22] MEDS ORDERED: VOLTAREN GEL 1100 G2 TOP (15:57)
[2017-04-22] MEDS ORDERED: IRON325 PO (15:57)
[2017-04-22] MEDS ORDERED: MAGOX 400400 MG PO (15:57)
[2017-04-22] MEDS ORDERED: ERGOCALCIF50000 UNIT PO (15:57)
[2017-04-22] MEDS ORDERED: PROTONIX 20 MG20 M1 PO (15:57)
[2017-04-22] MEDS ORDERED: METFORMIN HCL500 MG PO (15:58)
[2017-04-22] MEDS ORDERED: HOME MEDICATION SUBQ ×2 (16:24)
[2017-04-22 19:56] VITALS: BP 114/57
[2017-04-23 07:30] VITALS: BP 109/60
[2017-04-23 11:32] VITALS: BP 108/54
== END 2017-04-23 16:48 | disposition home health service (06) | DRG 947 ==
LOC: ENTRNSPT 04-23 14:48 → EDTRNSPTSTS 04-23 15:01
PROVIDERS: Hospitalist; Internal Medicine Nephrology; Nurse Practitioner; Physical Medicine & Rehabilitation
DX: R53.81 Other malaise (principal); E43 Unspecified severe protein-calorie malnutrition; L89.894 Pressure ulcer of other site, stage 4; L03.116 Cellulitis of left lower limb; L03.115 Cellulitis of right lower limb; N17.9 Acute kidney failure, unspecified; L97.929 Non-pressure chronic ulcer of unspecified part of left lower leg with unspecified severity; L97.919 Non-pressure chronic ulcer of unspecified part of right lower leg with unspecified severity; M86.8X8 Other osteomyelitis, other site; M86.9 Osteomyelitis, unspecified; N47.1 Phimosis; R33.9 Retention of urine, unspecified; F41.8 Other specified anxiety disorders; G31.84 Mild cognitive impairment of uncertain or unknown etiology; I89.0 Lymphedema, not elsewhere classified; M10.9 Gout, unspecified; B95.62 Methicillin resistant Staphylococcus aureus infection as the cause of diseases classified elsewhere; B96.5 Pseudomonas (aeruginosa) (mallei) (pseudomallei) as the cause of diseases classified elsewhere; N13.9 Obstructive and reflux uropathy, unspecified; D64.9 Anemia, unspecified; N18.9 Chronic kidney disease, unspecified; I12.9 Hypertensive chronic kidney disease with stage 1 through stage 4 chronic kidney disease, or unspecified chronic kidney disease; E11.22 Type 2 diabetes mellitus with diabetic chronic kidney disease; I87.2 Venous insufficiency (chronic) (peripheral); I83.009 Varicose veins of unspecified lower extremity with ulcer of unspecified site; L89.152 Pressure ulcer of sacral region, stage 2; L89.892 Pressure ulcer of other site, stage 2; E11.69 Type 2 diabetes mellitus with other specified complication; Q05.9 Spina bifida, unspecified; Z16.39 Resistance to other specified antimicrobial drug; Z88.2 Allergy status to sulfonamides; Z88.8 Allergy status to other drugs, medicaments and biological substances; Z68.36 Body mass index [BMI] 36.0-36.9, adult
CPT/HCPCS: 10112

== ENCOUNTER → 2017-05-05 | Outpatient (CLI) | payer OTHER ==
[~2017-05-05] MED LIST changes: +ASPIRIN81 M2 PO; +CARDURA4 MG PO; +CENTRUM SILVER1 EAC4 PO; +ERGOCALCIF50000 UNIT PO; +HOME MEDICATION SUBQ; +HUMALOG100 UNIT/1 SUBQ; +IRON325 PO; +KLOR-CON M2020 MEQ PO; +LANTUS100 UNIT/M SUBQ; +LASIX 20 MG TAB20 MG PO; +LOSARTAN POTASS50 MG PO; +MAGOX 400400 MG PO; +METFORMIN HCL500 MG PO; +PROTONIX 20 MG20 M1 PO; +TYLENOL EXTRA500 MG PO; +VOLTAREN GEL 1100 G2 TOP
== END ==
LOC: HYPER 04-20 13:36
DX: I87.313 Chronic venous hypertension (idiopathic) with ulcer of bilateral lower extremity (principal); E11.622 Type 2 diabetes mellitus with other skin ulcer; L97.312 Non-pressure chronic ulcer of right ankle with fat layer exposed; L97.822 Non-pressure chronic ulcer of other part of left lower leg with fat layer exposed; I89.0 Lymphedema, not elsewhere classified; R60.0 Localized edema; E78.5 Hyperlipidemia, unspecified; E66.9 Obesity, unspecified; E11.51 Type 2 diabetes mellitus with diabetic peripheral angiopathy without gangrene; M19.90 Unspecified osteoarthritis, unspecified site; Z79.4 Long term (current) use of insulin; Z79.84 Long term (current) use of oral hypoglycemic drugs

== ENCOUNTER → 2017-05-21 | Outpatient (CLI) | payer OTHER | LOC: HYPER 07:17 | DX: I87.313 Chronic venous hypertension (idiopathic) with ulcer of bilateral lower extremity (principal); E11.622 Type 2 diabetes mellitus with other skin ulcer; L97.811 Non-pressure chronic ulcer of other part of right lower leg limited to breakdown of skin; L97.821 Non-pressure chronic ulcer of other part of left lower leg limited to breakdown of skin; L89.313 Pressure ulcer of right buttock, stage 3; I89.0 Lymphedema, not elsewhere classified; R60.0 Localized edema; Z79.4 Long term (current) use of insulin; Z79.84 Long term (current) use of oral hypoglycemic drugs; E78.5 Hyperlipidemia, unspecified; M19.90 Unspecified osteoarthritis, unspecified site; E66.9 Obesity, unspecified; Z68.41 Body mass index [BMI] 40.0-44.9, adult; E11.51 Type 2 diabetes mellitus with diabetic peripheral angiopathy without gangrene ==

== ENCOUNTER → 2017-07-14 | Outpatient (CLI) | payer OTHER ==
[~2017-07-14] MED LIST changes: -CENTRUM SILVER1 EAC4 PO; -HUMALOG100 UNIT/1 SUBQ; -KLOR-CON M2020 MEQ PO; -LANTUS100 UNIT/M SUBQ; -LASIX 20 MG TAB20 MG PO; -LOSARTAN POTASS50 MG PO
== END ==
LOC: HYPER 06:43
DX: I87.313 Chronic venous hypertension (idiopathic) with ulcer of bilateral lower extremity (principal); L97.811 Non-pressure chronic ulcer of other part of right lower leg limited to breakdown of skin; L97.822 Non-pressure chronic ulcer of other part of left lower leg with fat layer exposed; L89.313 Pressure ulcer of right buttock, stage 3; L97.312 Non-pressure chronic ulcer of right ankle with fat layer exposed; I89.0 Lymphedema, not elsewhere classified; R60.0 Localized edema; E78.5 Hyperlipidemia, unspecified; M19.90 Unspecified osteoarthritis, unspecified site; E66.9 Obesity, unspecified; Z68.41 Body mass index [BMI] 40.0-44.9, adult; Z79.4 Long term (current) use of insulin; Z79.84 Long term (current) use of oral hypoglycemic drugs

== ENCOUNTER → 2017-07-28 | Outpatient (CLI) | payer OTHER | LOC: HYPER 07:05 | DX: E11.622 Type 2 diabetes mellitus with other skin ulcer (principal); L89.313 Pressure ulcer of right buttock, stage 3; L98.411 Non-pressure chronic ulcer of buttock limited to breakdown of skin; L89.153 Pressure ulcer of sacral region, stage 3; L98.491 Non-pressure chronic ulcer of skin of other sites limited to breakdown of skin; I87.313 Chronic venous hypertension (idiopathic) with ulcer of bilateral lower extremity; L97.811 Non-pressure chronic ulcer of other part of right lower leg limited to breakdown of skin; L97.822 Non-pressure chronic ulcer of other part of left lower leg with fat layer exposed; L97.312 Non-pressure chronic ulcer of right ankle with fat layer exposed; E11.51 Type 2 diabetes mellitus with diabetic peripheral angiopathy without gangrene; E78.5 Hyperlipidemia, unspecified; I89.0 Lymphedema, not elsewhere classified; M19.90 Unspecified osteoarthritis, unspecified site; E66.9 Obesity, unspecified; G47.33 Obstructive sleep apnea (adult) (pediatric); Z98.49 Cataract extraction status, unspecified eye; Z79.4 Long term (current) use of insulin; Z79.84 Long term (current) use of oral hypoglycemic drugs; Z68.41 Body mass index [BMI] 40.0-44.9, adult ==

== ENCOUNTER → 2017-08-11 | Outpatient (CLI) | payer OTHER | LOC: HYPER 07:06 | DX: E11.622 Type 2 diabetes mellitus with other skin ulcer (principal); I87.313 Chronic venous hypertension (idiopathic) with ulcer of bilateral lower extremity; L97.822 Non-pressure chronic ulcer of other part of left lower leg with fat layer exposed; L97.811 Non-pressure chronic ulcer of other part of right lower leg limited to breakdown of skin; L97.312 Non-pressure chronic ulcer of right ankle with fat layer exposed; E11.51 Type 2 diabetes mellitus with diabetic peripheral angiopathy without gangrene; L89.313 Pressure ulcer of right buttock, stage 3; L98.411 Non-pressure chronic ulcer of buttock limited to breakdown of skin; L84 Corns and callosities; I89.0 Lymphedema, not elsewhere classified; E78.5 Hyperlipidemia, unspecified; E66.9 Obesity, unspecified; M19.90 Unspecified osteoarthritis, unspecified site; G47.33 Obstructive sleep apnea (adult) (pediatric); Z98.49 Cataract extraction status, unspecified eye; Z79.4 Long term (current) use of insulin; Z79.84 Long term (current) use of oral hypoglycemic drugs ==

== ENCOUNTER → 2017-08-25 | Outpatient (CLI) | payer OTHER | LOC: HYPER 06:58 | DX: E11.622 Type 2 diabetes mellitus with other skin ulcer (principal); I87.313 Chronic venous hypertension (idiopathic) with ulcer of bilateral lower extremity; L97.822 Non-pressure chronic ulcer of other part of left lower leg with fat layer exposed; L97.811 Non-pressure chronic ulcer of other part of right lower leg limited to breakdown of skin; L89.153 Pressure ulcer of sacral region, stage 3; L98.491 Non-pressure chronic ulcer of skin of other sites limited to breakdown of skin; E11.51 Type 2 diabetes mellitus with diabetic peripheral angiopathy without gangrene; I89.0 Lymphedema, not elsewhere classified; E78.5 Hyperlipidemia, unspecified; E66.9 Obesity, unspecified; L84 Corns and callosities; G47.33 Obstructive sleep apnea (adult) (pediatric); M19.90 Unspecified osteoarthritis, unspecified site; Z79.4 Long term (current) use of insulin; Z79.84 Long term (current) use of oral hypoglycemic drugs; Z98.49 Cataract extraction status, unspecified eye; Z68.41 Body mass index [BMI] 40.0-44.9, adult ==

== ENCOUNTER → 2017-09-08 | Outpatient (CLI) | payer OTHER | LOC: HYPER 06:55 | DX: E11.622 Type 2 diabetes mellitus with other skin ulcer (principal); I87.393 Chronic venous hypertension (idiopathic) with other complications of bilateral lower extremity; L97.821 Non-pressure chronic ulcer of other part of left lower leg limited to breakdown of skin; L97.811 Non-pressure chronic ulcer of other part of right lower leg limited to breakdown of skin; L89.313 Pressure ulcer of right buttock, stage 3; L98.411 Non-pressure chronic ulcer of buttock limited to breakdown of skin; E11.51 Type 2 diabetes mellitus with diabetic peripheral angiopathy without gangrene; I89.0 Lymphedema, not elsewhere classified; M10.9 Gout, unspecified; E78.5 Hyperlipidemia, unspecified; E66.9 Obesity, unspecified; M19.90 Unspecified osteoarthritis, unspecified site; G47.33 Obstructive sleep apnea (adult) (pediatric); Z98.49 Cataract extraction status, unspecified eye; Z79.4 Long term (current) use of insulin; Z79.84 Long term (current) use of oral hypoglycemic drugs; Z68.41 Body mass index [BMI] 40.0-44.9, adult ==

== ENCOUNTER → 2017-09-29 | Outpatient (CLI) | payer OTHER | LOC: HYPER 06:51 | DX: E11.622 Type 2 diabetes mellitus with other skin ulcer (principal); L97.821 Non-pressure chronic ulcer of other part of left lower leg limited to breakdown of skin; L97.811 Non-pressure chronic ulcer of other part of right lower leg limited to breakdown of skin; L89.313 Pressure ulcer of right buttock, stage 3; L89.153 Pressure ulcer of sacral region, stage 3; L98.411 Non-pressure chronic ulcer of buttock limited to breakdown of skin; E11.51 Type 2 diabetes mellitus with diabetic peripheral angiopathy without gangrene; I87.2 Venous insufficiency (chronic) (peripheral); I89.0 Lymphedema, not elsewhere classified; M10.9 Gout, unspecified; E78.5 Hyperlipidemia, unspecified; E66.9 Obesity, unspecified; G47.33 Obstructive sleep apnea (adult) (pediatric); M19.90 Unspecified osteoarthritis, unspecified site; Z68.41 Body mass index [BMI] 40.0-44.9, adult; Z98.49 Cataract extraction status, unspecified eye; Z79.4 Long term (current) use of insulin; Z79.84 Long term (current) use of oral hypoglycemic drugs ==

== ENCOUNTER → 2017-10-19 | Outpatient (CLI) | payer OTHER | LOC: HYPER 07:04 | DX: E11.622 Type 2 diabetes mellitus with other skin ulcer (principal); I87.313 Chronic venous hypertension (idiopathic) with ulcer of bilateral lower extremity; L97.811 Non-pressure chronic ulcer of other part of right lower leg limited to breakdown of skin; L97.821 Non-pressure chronic ulcer of other part of left lower leg limited to breakdown of skin; L89.313 Pressure ulcer of right buttock, stage 3; L98.411 Non-pressure chronic ulcer of buttock limited to breakdown of skin; E11.51 Type 2 diabetes mellitus with diabetic peripheral angiopathy without gangrene; I89.0 Lymphedema, not elsewhere classified; L84 Corns and callosities; M10.9 Gout, unspecified; E78.5 Hyperlipidemia, unspecified; E66.9 Obesity, unspecified; G47.33 Obstructive sleep apnea (adult) (pediatric); M19.90 Unspecified osteoarthritis, unspecified site; Z79.4 Long term (current) use of insulin; Z79.84 Long term (current) use of oral hypoglycemic drugs; Z68.41 Body mass index [BMI] 40.0-44.9, adult ==

== ENCOUNTER → 2017-11-30 | Outpatient (CLI) | payer OTHER | LOC: HYPER 07:10 | DX: E11.622 Type 2 diabetes mellitus with other skin ulcer (principal); I87.313 Chronic venous hypertension (idiopathic) with ulcer of bilateral lower extremity; L97.811 Non-pressure chronic ulcer of other part of right lower leg limited to breakdown of skin; L97.821 Non-pressure chronic ulcer of other part of left lower leg limited to breakdown of skin; L84 Corns and callosities; E78.5 Hyperlipidemia, unspecified; E66.9 Obesity, unspecified; G47.33 Obstructive sleep apnea (adult) (pediatric); I73.9 Peripheral vascular disease, unspecified; I89.0 Lymphedema, not elsewhere classified; M10.9 Gout, unspecified; M19.90 Unspecified osteoarthritis, unspecified site; Z79.4 Long term (current) use of insulin; Z79.84 Long term (current) use of oral hypoglycemic drugs; Z68.41 Body mass index [BMI] 40.0-44.9, adult ==

== ENCOUNTER 2017-12-04 13:17 | Emergency (ER) | payer OTHER ==
[~2017-12-04] VITALS: Ht 167.6 cm; Wt 102.1 kg
== END 2017-12-04 14:14 | disposition home or self-care (01) ==
LOC: ER 13:17
DX: I89.0 Lymphedema, not elsewhere classified (principal); M10.9 Gout, unspecified; E11.22 Type 2 diabetes mellitus with diabetic chronic kidney disease; I12.9 Hypertensive chronic kidney disease with stage 1 through stage 4 chronic kidney disease, or unspecified chronic kidney disease; N18.9 Chronic kidney disease, unspecified; Z86.14 Personal history of Methicillin resistant Staphylococcus aureus infection; Z88.1 Allergy status to other antibiotic agents; Z88.2 Allergy status to sulfonamides; Z88.8 Allergy status to other drugs, medicaments and biological substances

== ENCOUNTER → 2017-12-13 | Outpatient (CLI) | payer OTHER | LOC: HYPER 06:59 | DX: E11.622 Type 2 diabetes mellitus with other skin ulcer (principal); I87.313 Chronic venous hypertension (idiopathic) with ulcer of bilateral lower extremity; L97.821 Non-pressure chronic ulcer of other part of left lower leg limited to breakdown of skin; L97.811 Non-pressure chronic ulcer of other part of right lower leg limited to breakdown of skin; L84 Corns and callosities; I89.0 Lymphedema, not elsewhere classified; E11.51 Type 2 diabetes mellitus with diabetic peripheral angiopathy without gangrene; E78.5 Hyperlipidemia, unspecified; E66.9 Obesity, unspecified; G47.33 Obstructive sleep apnea (adult) (pediatric); M10.9 Gout, unspecified; M19.90 Unspecified osteoarthritis, unspecified site; Z68.41 Body mass index [BMI] 40.0-44.9, adult; Z79.4 Long term (current) use of insulin; Z79.84 Long term (current) use of oral hypoglycemic drugs ==

== ENCOUNTER 2017-12-25 12:59 | Emergency (ER) | payer OTHER ==
[~2017-12-25] VITALS: Ht 162.6 cm; Wt 106.6 kg
--- NOTE | ~2017-12-25 | EKG ---
[address] [address] ELECTROCARDIOGRAM REPORT Name: AISLINN GONZALEZ Room #: PRE M.R.#: [id number] Admission: Attend Phys: Discharge: Date of : 43 Report #: [id number] THIS REPORT FOR: //name// [facility] ED Test Date: 2017-12-25 Test Time: 13:09:34 Pat Name: AISLINN GONZALEZ Department: Room: Gender: M Chair Springer: : 1945 Requested By: Nury Ford Order Number: [id number] MD: Measurements Intervals [place] Rate: 107 P: 22 NC: 202 QRS: 52 QRSD: 89 T: 45 QT: 330 QTc: 441 Interpretive Statements Sinus tachycardia Consider left atrial enlargement Compared to ECG 11/09/2014 13:58:12 Sinus rhythm no longer present [email or web address] By: 1309 130 Epiphany MD Elizabeth /EPI
[2017-12-25 13:25] LABS: ABSOLUTE NEUTROPHILS 7.5 thou/uL (1.4-8.2); BASOPHILS 0.5 % (0.0-2.0); EOSINOPHILS 0.4 % (0.0-3.0); HEMATOCRIT 33.6 % (42.0-52.0); HEMOGLOBIN 11.6 gm/dL (14.0-18.0); LYMPHOCYTES 8.8 % (24.0-44.0); MCH 33.7 pg (26.0-34.0); MCHC 34.5 g/dL (28.0-37.0); MCV 97.7 fL (80.0-100.0); MONOCYTES 9.2 % (1.0-8.0); PLATELET COUNT 111 thou/uL (150-400); POLYS 81.1 % (36.0-66.0); RBC 3.44 mil/uL (4.50-6.00); RDW 14.6 % (10.5-14.5); WBC 9.3 thou/uL (4.0-11.0)
[2017-12-25 13:40] LABS: ANION GAP 9 mmol/L (7-16); BUN 32 mg/dL (7-18); CALCIUM 9.6 mg/dL (8.5-10.1); CHLORIDE 103 mmol/L (98-107); CO2 25 mmol/L (21-32); CREATININE 1.6 mg/dL (0.7-1.3); GLUCOSE 221 mg/dL (74-106); POTASSIUM 4.6 mmol/L (3.5-5.1); SODIUM 137 mmol/L (136-145)
[2017-12-25 13:42] LABS: TROPONIN-I <0.06 ng/mL (<0.06)
[2017-12-25] MEDS ORDERED: LASIX 20 MG TAB20 MG PO (14:07)
[2017-12-25] MEDS ORDERED: LOSARTAN POTASS50 MG PO (14:07)
[2017-12-25] MEDS ORDERED: KLOR-CON M2020 MEQ PO (14:07)
[2017-12-25] MEDS ORDERED: LANTUS100 UNIT/M SUBQ (14:08)
[2017-12-25] MEDS ORDERED: HUMALOG100 UNIT/1 SUBQ (14:08)
[2017-12-25] MEDS ORDERED: CENTRUM SILVER1 EAC4 PO (14:09)
[2017-12-25 15:32] LABS: URINE BILIRUBIN NEGATIVE (Negative); URINE BLOOD TRACE (Negative); URINE CLARITY CLEAR; URINE COLOR YELLOW; URINE GLUCOSE-RANDOM* NEGATIVE (Negative); URINE KETONES NEGATIVE (Negative); URINE LEUKOCYTES NEGATIVE (Negative); URINE NITRITE NEGATIVE (Negative); URINE PROTEIN (DIPSTICK) 1+ (Negative); URINE SPECIFIC GRAVITY 1.015 (1.005-1.035); URINE UROBILINOGEN 0.2 E.U./dl (0.2-1.0)
[2017-12-25 15:58] LABS: BACTERIA None Seen /HPF (None Seen); CASTS None Seen /LPF (None Seen); SQUAMOUS 0-3 Few /LPF (0-3); URINE RBC 0-2 Rare /HPF (0-2); URINE WBC None Seen /HPF (0-5)
[2017-12-25 15:59] LABS: CRYSTALS None Seen /LPF (None Seen)
== END 2017-12-25 17:13 | disposition home or self-care (01) ==
LOC: ER 12:59
PROVIDERS: Student in an Organized Health Care Education/Training Program
DX: R53.1 Weakness (principal); M10.9 Gout, unspecified; E11.22 Type 2 diabetes mellitus with diabetic chronic kidney disease; I12.9 Hypertensive chronic kidney disease with stage 1 through stage 4 chronic kidney disease, or unspecified chronic kidney disease; N18.9 Chronic kidney disease, unspecified; D64.9 Anemia, unspecified; Z86.14 Personal history of Methicillin resistant Staphylococcus aureus infection; Z79.4 Long term (current) use of insulin; Z88.1 Allergy status to other antibiotic agents; Z88.2 Allergy status to sulfonamides; Z88.8 Allergy status to other drugs, medicaments and biological substances

== ENCOUNTER → 2017-12-27 | Outpatient (CLI) | payer OTHER ==
[~2017-12-27] MED LIST changes: +CENTRUM SILVER1 EAC4 PO; +HUMALOG100 UNIT/1 SUBQ; +KLOR-CON M2020 MEQ PO; +LANTUS100 UNIT/M SUBQ; +LASIX 20 MG TAB20 MG PO; +LOSARTAN POTASS50 MG PO
== END ==
LOC: HYPER 06:57
DX: E11.622 Type 2 diabetes mellitus with other skin ulcer (principal); I87.393 Chronic venous hypertension (idiopathic) with other complications of bilateral lower extremity; L97.811 Non-pressure chronic ulcer of other part of right lower leg limited to breakdown of skin; L97.821 Non-pressure chronic ulcer of other part of left lower leg limited to breakdown of skin; L84 Corns and callosities; E11.51 Type 2 diabetes mellitus with diabetic peripheral angiopathy without gangrene; E78.5 Hyperlipidemia, unspecified; E66.9 Obesity, unspecified; I89.0 Lymphedema, not elsewhere classified; G47.33 Obstructive sleep apnea (adult) (pediatric); M10.9 Gout, unspecified; M19.90 Unspecified osteoarthritis, unspecified site; Z79.4 Long term (current) use of insulin; Z79.84 Long term (current) use of oral hypoglycemic drugs; Z68.41 Body mass index [BMI] 40.0-44.9, adult

== ENCOUNTER → 2018-01-10 | Outpatient (CLI) | payer OTHER | LOC: HYPER 07:14 | DX: E11.622 Type 2 diabetes mellitus with other skin ulcer (principal); I87.313 Chronic venous hypertension (idiopathic) with ulcer of bilateral lower extremity; L97.811 Non-pressure chronic ulcer of other part of right lower leg limited to breakdown of skin; L97.821 Non-pressure chronic ulcer of other part of left lower leg limited to breakdown of skin; L84 Corns and callosities; E11.51 Type 2 diabetes mellitus with diabetic peripheral angiopathy without gangrene; E78.5 Hyperlipidemia, unspecified; E66.9 Obesity, unspecified; G47.33 Obstructive sleep apnea (adult) (pediatric); I89.0 Lymphedema, not elsewhere classified; M10.9 Gout, unspecified; M19.90 Unspecified osteoarthritis, unspecified site; Z68.41 Body mass index [BMI] 40.0-44.9, adult; Z79.4 Long term (current) use of insulin; Z79.84 Long term (current) use of oral hypoglycemic drugs ==

== ENCOUNTER → 2018-01-31 | Outpatient (CLI) | payer OTHER | LOC: HYPER 07:14 | DX: E11.622 Type 2 diabetes mellitus with other skin ulcer (principal); I87.313 Chronic venous hypertension (idiopathic) with ulcer of bilateral lower extremity; L97.811 Non-pressure chronic ulcer of other part of right lower leg limited to breakdown of skin; L97.821 Non-pressure chronic ulcer of other part of left lower leg limited to breakdown of skin; L97.211 Non-pressure chronic ulcer of right calf limited to breakdown of skin; L84 Corns and callosities; I89.0 Lymphedema, not elsewhere classified; E11.51 Type 2 diabetes mellitus with diabetic peripheral angiopathy without gangrene; E78.5 Hyperlipidemia, unspecified; E66.9 Obesity, unspecified; G47.33 Obstructive sleep apnea (adult) (pediatric); M10.9 Gout, unspecified; M19.90 Unspecified osteoarthritis, unspecified site; Z68.41 Body mass index [BMI] 40.0-44.9, adult; Z79.4 Long term (current) use of insulin; Z79.84 Long term (current) use of oral hypoglycemic drugs ==

== ENCOUNTER → 2018-03-02 | Outpatient (CLI) | payer OTHER | LOC: HYPER 07:33 | DX: E11.622 Type 2 diabetes mellitus with other skin ulcer (principal); I87.313 Chronic venous hypertension (idiopathic) with ulcer of bilateral lower extremity; L97.821 Non-pressure chronic ulcer of other part of left lower leg limited to breakdown of skin; L97.811 Non-pressure chronic ulcer of other part of right lower leg limited to breakdown of skin; L84 Corns and callosities; E11.51 Type 2 diabetes mellitus with diabetic peripheral angiopathy without gangrene; E78.5 Hyperlipidemia, unspecified; E66.9 Obesity, unspecified; I89.0 Lymphedema, not elsewhere classified; G47.33 Obstructive sleep apnea (adult) (pediatric); M10.9 Gout, unspecified; M19.90 Unspecified osteoarthritis, unspecified site; Z79.4 Long term (current) use of insulin; Z79.84 Long term (current) use of oral hypoglycemic drugs; Z68.41 Body mass index [BMI] 40.0-44.9, adult ==

== ENCOUNTER → 2018-03-30 | Outpatient (CLI) | payer OTHER | LOC: HYPER 07:06 | DX: E11.622 Type 2 diabetes mellitus with other skin ulcer (principal); I87.313 Chronic venous hypertension (idiopathic) with ulcer of bilateral lower extremity; L97.821 Non-pressure chronic ulcer of other part of left lower leg limited to breakdown of skin; L97.811 Non-pressure chronic ulcer of other part of right lower leg limited to breakdown of skin; L89.313 Pressure ulcer of right buttock, stage 3; L84 Corns and callosities; E11.51 Type 2 diabetes mellitus with diabetic peripheral angiopathy without gangrene; E66.9 Obesity, unspecified; E78.5 Hyperlipidemia, unspecified; G47.33 Obstructive sleep apnea (adult) (pediatric); I89.0 Lymphedema, not elsewhere classified; M10.9 Gout, unspecified; M19.90 Unspecified osteoarthritis, unspecified site; Z79.4 Long term (current) use of insulin; Z79.84 Long term (current) use of oral hypoglycemic drugs; Z68.41 Body mass index [BMI] 40.0-44.9, adult ==

== ENCOUNTER → 2018-04-19 | Outpatient (CLI) | payer OTHER | LOC: HYPER 07:24 | DX: E11.622 Type 2 diabetes mellitus with other skin ulcer (principal); I87.313 Chronic venous hypertension (idiopathic) with ulcer of bilateral lower extremity; L97.821 Non-pressure chronic ulcer of other part of left lower leg limited to breakdown of skin; L97.811 Non-pressure chronic ulcer of other part of right lower leg limited to breakdown of skin; L89.313 Pressure ulcer of right buttock, stage 3; L98.411 Non-pressure chronic ulcer of buttock limited to breakdown of skin; E11.51 Type 2 diabetes mellitus with diabetic peripheral angiopathy without gangrene; I89.0 Lymphedema, not elsewhere classified; L84 Corns and callosities; M10.9 Gout, unspecified; E78.5 Hyperlipidemia, unspecified; E66.9 Obesity, unspecified; G47.33 Obstructive sleep apnea (adult) (pediatric); M19.90 Unspecified osteoarthritis, unspecified site; Z79.4 Long term (current) use of insulin; Z79.84 Long term (current) use of oral hypoglycemic drugs; Z68.41 Body mass index [BMI] 40.0-44.9, adult ==

== ENCOUNTER → 2018-04-26 | Outpatient (CLI) | payer OTHER | LOC: HYPER 07:15 | DX: E11.622 Type 2 diabetes mellitus with other skin ulcer (principal); I87.313 Chronic venous hypertension (idiopathic) with ulcer of bilateral lower extremity; L97.821 Non-pressure chronic ulcer of other part of left lower leg limited to breakdown of skin; L97.811 Non-pressure chronic ulcer of other part of right lower leg limited to breakdown of skin; L89.313 Pressure ulcer of right buttock, stage 3; L98.411 Non-pressure chronic ulcer of buttock limited to breakdown of skin; I89.0 Lymphedema, not elsewhere classified; L84 Corns and callosities; E11.51 Type 2 diabetes mellitus with diabetic peripheral angiopathy without gangrene; E78.5 Hyperlipidemia, unspecified; E66.9 Obesity, unspecified; G47.33 Obstructive sleep apnea (adult) (pediatric); M10.9 Gout, unspecified; M19.90 Unspecified osteoarthritis, unspecified site; Z79.4 Long term (current) use of insulin; Z79.84 Long term (current) use of oral hypoglycemic drugs ==

== ENCOUNTER → 2018-05-03 | Outpatient (CLI) | payer OTHER | LOC: HYPER 07:11 | DX: E11.622 Type 2 diabetes mellitus with other skin ulcer (principal); I87.313 Chronic venous hypertension (idiopathic) with ulcer of bilateral lower extremity; L97.822 Non-pressure chronic ulcer of other part of left lower leg with fat layer exposed; L97.811 Non-pressure chronic ulcer of other part of right lower leg limited to breakdown of skin; L89.313 Pressure ulcer of right buttock, stage 3; L98.411 Non-pressure chronic ulcer of buttock limited to breakdown of skin; L84 Corns and callosities; E11.51 Type 2 diabetes mellitus with diabetic peripheral angiopathy without gangrene; E78.5 Hyperlipidemia, unspecified; E66.9 Obesity, unspecified; G47.33 Obstructive sleep apnea (adult) (pediatric); I89.0 Lymphedema, not elsewhere classified; M10.9 Gout, unspecified; M19.90 Unspecified osteoarthritis, unspecified site; Z79.4 Long term (current) use of insulin; Z79.84 Long term (current) use of oral hypoglycemic drugs; Z68.41 Body mass index [BMI] 40.0-44.9, adult ==

== ENCOUNTER → 2018-05-10 | Outpatient (CLI) | payer OTHER | LOC: HYPER 07:16 | DX: E11.622 Type 2 diabetes mellitus with other skin ulcer (principal); I87.313 Chronic venous hypertension (idiopathic) with ulcer of bilateral lower extremity; L97.822 Non-pressure chronic ulcer of other part of left lower leg with fat layer exposed; L97.811 Non-pressure chronic ulcer of other part of right lower leg limited to breakdown of skin; L89.313 Pressure ulcer of right buttock, stage 3; L98.411 Non-pressure chronic ulcer of buttock limited to breakdown of skin; L84 Corns and callosities; I89.0 Lymphedema, not elsewhere classified; E11.51 Type 2 diabetes mellitus with diabetic peripheral angiopathy without gangrene; E78.5 Hyperlipidemia, unspecified; E66.9 Obesity, unspecified; G47.33 Obstructive sleep apnea (adult) (pediatric); M10.9 Gout, unspecified; M19.90 Unspecified osteoarthritis, unspecified site; Z68.41 Body mass index [BMI] 40.0-44.9, adult; Z79.4 Long term (current) use of insulin; Z79.84 Long term (current) use of oral hypoglycemic drugs ==

== ENCOUNTER → 2018-05-24 | Outpatient (CLI) | payer OTHER ==
[~2018-05-24] MED LIST changes: +HUMALOG KW100 UNIT/1 SUBQ
== END ==
LOC: HYPER 07:20
DX: E11.622 Type 2 diabetes mellitus with other skin ulcer (principal); I87.313 Chronic venous hypertension (idiopathic) with ulcer of bilateral lower extremity; L97.822 Non-pressure chronic ulcer of other part of left lower leg with fat layer exposed; L97.811 Non-pressure chronic ulcer of other part of right lower leg limited to breakdown of skin; L89.313 Pressure ulcer of right buttock, stage 3; L98.411 Non-pressure chronic ulcer of buttock limited to breakdown of skin; E11.51 Type 2 diabetes mellitus with diabetic peripheral angiopathy without gangrene; I89.0 Lymphedema, not elsewhere classified; L84 Corns and callosities; M10.9 Gout, unspecified; E78.5 Hyperlipidemia, unspecified; E66.9 Obesity, unspecified; M19.90 Unspecified osteoarthritis, unspecified site; G47.33 Obstructive sleep apnea (adult) (pediatric); Z79.4 Long term (current) use of insulin; Z68.41 Body mass index [BMI] 40.0-44.9, adult; Z79.84 Long term (current) use of oral hypoglycemic drugs

== ENCOUNTER 2018-05-25 12:33 | Inpatient (IN) | payer OTHER ==
[~2018-05-25] VITALS: Ht 165.1 cm; Wt 103.1 kg
[~2018-05-25 12:33] MED LIST changes: -HUMALOG KW100 UNIT/1 SUBQ
[2018-05-25 16:29] VITALS: BP 130/50
[2018-05-25 17:38] LABS: HEMATOCRIT 31.9 % (42.0-52.0); HEMOGLOBIN 10.6 gm/dL (14.0-18.0); MCHC 33.3 g/dL (28.0-37.0); RBC 3.23 mil/uL (4.50-6.00); RDW 14.9 % (10.5-14.5); WBC 5.7 thou/uL (4.0-11.0)
[2018-05-25 17:43] LABS: CALCIUM 9.3 mg/dL (8.5-10.1); CREATININE 1.3 mg/dL (0.7-1.3); POTASSIUM 4.5 mmol/L (3.5-5.1)
[2018-05-25 17:49] LABS: TOTAL BILIRUBIN 0.4 mg/dL (<0.1-1.0); TOTAL PROTEIN 7.8 g/dL (6.4-8.2)
[2018-05-25 19:45] VITALS: BP 123/46
--- NOTE | 2018-05-25 19:59 | NUR ---
PT ARRIVED PER WC FROM DR SCHROEDER'S OFFICE AROUND 1440 IN STABLE CONDITION. ADMISSION HX, ASSESSMENT AND CARE PLAN COMPLETED.DR CAPPS NOTIFIED ABOUT PT ADMISSION TO FLOOR.HE ROUNDED ON PT AND ORDERS NOTED.DR HUSTON SAW PT AND WANTED WOUND WRAP.PICTURE TAKEN PER PROTOCOL.REPORT OFF TO NOC RN.
--- NOTE | 2018-05-26 04:54 | NUR ---
PT DENIED PAIN SO FAR.SLEPT MOST OF THE NIGHT.DRSG TO BLE STILL INTACT.URINAL AT BEDSIDE WITH ADEQUATE.PT UP TO BSC WITH ASSIST X1.IV ABX ADMINISTERED ORDERED.PT RESTING ON HIS BED AT THIS TIME.CALL LIGHT WITHIN REACH.
[2018-05-26 05:10] VITALS: BP 145/70
[2018-05-26 05:32] LABS: CALCIUM 9.1 mg/dL (8.5-10.1); CREATININE 1.3 mg/dL (0.7-1.3); POTASSIUM 4.4 mmol/L (3.5-5.1)
[2018-05-26 05:48] LABS: HEMATOCRIT 33.4 % (42.0-52.0); MCH 32.7 pg (26.0-34.0); MCHC 32.9 g/dL (28.0-37.0); MCV 99.3 fL (80.0-100.0); RBC 3.36 mil/uL (4.50-6.00); RDW 14.9 % (10.5-14.5); WBC 6.2 thou/uL (4.0-11.0)
[2018-05-26 08:30] VITALS: BP 116/48
--- NOTE | 2018-05-26 11:43 | NUR ---
Assumed pt care at 7am.Pt in bed resting without c/o but wanted to get better and return home.Assessment completed.vss.pt has good appetite and tolerated meds.Dr Gates and Tyler here,order noted.Lymphydema nurse will be coming later this shift to wrap bilat.lower extremities.No verbal c/o will continue to monitor.
--- NOTE | 2018-05-26 12:44 | NUR ---
INITIAL ASSESSMENT: Pt evaluated for d/c planning needs. Reviewed chart and spoke with nurse and pt. Pt is alert and oriented. Pt lives in house with spouse of 52 years and 44 year old daughter. Pt uses walker or cane for ambulation. Pt has had [facility] and [facility] in the past. Pt is currently on service with [facility]. Pt plans on returning home on d/c from hospital. Will remain available to assist as needed.
--- NOTE | 2018-05-26 16:27 | NUR ---
WOUND CONSULT: PT. WAS SEEN TODAY BY DR. HUSTON AND MYSELF. PT. IS WELL KNOWN TO THE WOUND CARE TEAM. PT. HAS ULCERATIONS TO HIS BILATERAL LOWER EXTREMITYS WITH CELLULITIS AND CHRONIC LYMPEDEMA. RECOMMENDATIONS: LYMPEDEMA THERAPY 2X PER WEEK PT. AND STAFF NURSE WERE INSTRUCTED ON PLAN OF CARE.
[2018-05-26 16:52] VITALS: BP 111/45
[2018-05-26 21:01] VITALS: BP 124/49
[2018-05-26] MEDS ORDERED: HUMALOG KW100 UNIT/1 SUBQ ×2 (21:36→21:37)
--- NOTE | 2018-05-27 04:07 | NUR ---
PT DENIED PAIN SO FAR.LYMPHEDEMA WRAP STILL IN PLACE ON HIS BLE.PT CONT WITH IV ABX ORDERED.PT CALM AND COOPERATIVE WITH CARE.PT ABLE TO MAKE HIS NEEDS KNOWN.URINAL AT BEDSIDE.FALL AND ISOLATION PRECAUTIONS MAINTAINED.
[2018-05-27 06:10] VITALS: BP 135/50
[2018-05-27 08:06] VITALS: BP 134/56
--- NOTE | 2018-05-27 08:11 | NUR ---
ASSUMED PT CARE AT 0700. ASSESSMENT COMPLETED AND IS CHARTED. VSS. PT AWAKE, ALERT/ORIENTED X4. DENIES PAIN. LEGS ARE WRAPPED BILATERALLY, CDI. BLOOD SUGAR 115. NO NEW CONCERNS OR COMPAINTS FROM PATIENT. WILL CONTINUE WITH CURRENT CARE.
--- NOTE | 2018-05-27 11:07 | HC ---
[facility] [place] [address] [place] [address] CONSULTATION Name: AISLINN GONZALEZ Room #: 428-P ADM IN M.R.#: [id number] Admission: 05/25/18 ������������������ Attend Phys: Juan Mayfield MD Discharge: ������������������ Date of : 43 Report #: [id number] THIS REPORT FOR: //name// CC: Ambrose Lynn MD DATE OF SERVICE: 05/26/2018 INFECTIOUS DISEASE CONSULTATION ATTENDING PHYSICIAN: Dr. Mayfield. REASON FOR CONSULTATION: Antibiotic management. HISTORY OF PRESENT ILLNESS: A 72-year-old white man known to me from previous hospitalization at [facility] with stasis dermatitis infection in lower extremities, is readmitted at this time from doctor out of office with cellulitic changes, left leg. The patient denies fever, but increasing pain, left leg. Having pressure dressing applied daily. DRUG ALLERGIES: SULFA, LEVAQUIN, ATORVASTATIN, INSULIN, ASPARTATE. MEDICATIONS: Zosyn 3.375 grams IV every 8 hours, vancomycin 750 mg IV every 12 hours, also on allopurinol, furosemide, KCl, aspirin, losartan, subcutaneous heparin, insulin glargine, ferrous sulfate, p.r.n. glucose glucagon, and p.r.n. ondansetron. SOCIAL HISTORY: See H and P, old records. FAMILY HISTORY: See H and P, old records. PAST MEDICAL HISTORY: 1. Recurrent ulcerations, stasis dermatitis of lower extremities. 2. Diabetes mellitus. 3. Previous infection with Pseudomonas aeruginosa, Staphylococcus aureus. 4. History of acute kidney injury on chronic kidney disease. REVIEW OF SYSTEMS: See H and P and as above. PHYSICAL EXAMINATION: GENERAL: A well-developed, overweight man. VITAL SIGNS: Temperature maximum 99.1, pulse 86, respirations 18, BP 145/70, height 5 feet 5 inches, weight 227.2 pounds. HEENT: [place]. Pupils reactive. [address] [address] CONSULTATION Name: AISLINN GONZALEZ Room #: 428-P [facility] IN .R.#: [id number] Admission: 05/25/18 ������������������ Attend Phys: Juan Mayfield MD Discharge: ������������������ Date of : 43 Report #: [id number] NECK: Supple. LUNGS: Clear. HEART: S1, S2. No gallop. ABDOMEN: Soft, no masses or megaly. GENITALIA AND RECTAL: Deferred. EXTREMITIES: Reveal pressure dressings both legs, those are removed. He has chronic stasis dermatitis and heel ulcerations, right leg. Superficial ulceration, left leg, with minimal erythematous changes. No obvious severe cellulitis. NEUROLOGIC: Grossly within normal limits. LABORATORY DATA: Revealed the following abnormals BUN 21, glucose 120, hemoglobin 11 g/dL. Cultures pending. Chest x-ray revealed no acute radiographic abnormalities. ASSESSMENT: 1. Possible cellulitis, left leg. 2. Stasis dermatitis, superficial ulceration, left leg, worse on right. 3. Diabetes mellitus. 4. Allergy intolerance to SULFA DRUGS, LEVAQUIN, ATORVASTATIN, INSULIN, ASPARTATE. SUGGESTIONS: Recommend obtaining ESR, CRP. Continue vancomycin and Zosyn while awaiting cultures. Pressure dressings in legs. Suspect 24-48 hours from now, could be discharged home safely. Dr. Mayfield, Dr. Castañeda, and Dr. Stark, thank you for requesting my suggestions. ��������������������������������������������� <ELECTRONICALLY SIGNED> ���������������������������������������� By: Torres Gates MD ��������������������������������������������� 05/27/18 1107 1117 [id number] Torres Gates MD /nt
--- NOTE | 2018-05-27 13:33 | NUR ---
WOUND CARE FOLLOW UP; ROUNDING WITH DR LISSY HUSTON. RE; BILAT LE CELLULITS WOUNDS RE; LYMPHEDEMA, WOUNDS SHOW IMPROVEMENT TODAY. NO NEW ISSUES IDENTIFIED. RECOMMENDATIONS; CONT. CURRENT WOUND CARE PLAN DISCUSSED WITH RN
--- NOTE | 2018-05-27 14:25 | NUR ---
FAXED CLINICAL UPDATE TO [facility] SPOKE WITH RAJINDER IN ADM. SHE RECEIVED UPDATE AND WILL RESUME CARE AT DC. IF DC THIS WEEKEND FAX DC ORDERS TO AND CALL .
[2018-05-27 21:07] VITALS: BP 119/52
--- NOTE | 2018-05-28 01:15 | NUR ---
WRAPS TO BLE INTACT.PT DENIES PAIN. USING URINAL. HS BLOOD SUGAR OF 145. PT GOT BEDTIME SNACK.
[2018-05-28 05:59] VITALS: BP 128/61
[2018-05-28 09:55] VITALS: BP 119/50
--- NOTE | 2018-05-28 15:22 | NUR ---
Assessment completed.vss.Pt in bed for all meals.Good appetite.Pt up with walker and rn assist to bathroom.c/o diarrhea and refused miralax today.Dr carrasco here,order noted.Pt was impulsive and wanted thing done his own way. Bilateral lower extremities wrap in place.No further c/o at present.Will continue to monitor.
[2018-05-28 21:43] VITALS: BP 120/53
--- NOTE | 2018-05-29 03:36 | NUR ---
PT IS AFEBRILE. ALERT AND ORIENTED. USES WALKER TO THE BATHROOM.VOIDING OKAY. LYMHEDEMA DRSG TO BLE INTACT. NO FURTHER CONCERNS.
[2018-05-29 04:13] VITALS: BP 133/65
[2018-05-29 08:10] VITALS: BP 135/54
--- NOTE | 2018-05-29 12:02 | NUR ---
Assumed pt care at 7am.Pt in bed resting. Assessment completed. vss.Pt c/o diarrhea and wanted Dr Mayfield knows about it when rounding today.Blood sugar today was 99 but pt refused insulin but took all po meds with breakfast.Dr Mayfield here later this morning and order noted. Will continue to monitor. nuria
[2018-05-29 19:25] VITALS: BP 124/48
--- NOTE | 2018-05-30 01:34 | NUR ---
PER REPORT, PT HAS BEEN HAVING DIARRHEA,NONE NOTED SO FAR THIS SHIFT.BLE WITH WRAPS,C/D/I.URINAL AT BEDSIDE FOR ELIMINATION.CONT ON IV ABX ORDERED.FALL AND ISOLATION PRECAUTIONS MAINTAINED.CALL LIGHT WITHIN REACH.
[2018-05-30 03:30] VITALS: BP 121/44
--- NOTE | 2018-05-30 07:58 | HC ---
[facility] [place] [address] [place] [address] CONSULTATION Name: AISLINN GONZALEZ Room #: 428-P [facility] IN M.R.#: [id number] Admission: 05/25/18 ������������������ Attend Phys: Juan Mayfield MD Discharge: ������������������ Date of : 43 Report #: [id number] THIS REPORT FOR: //name// CC: Ambrose Mayfield DATE OF SERVICE: 05/26/2018 CHIEF COMPLAINT: Lower extremity cellulitis. HISTORY OF PRESENT ILLNESS: This is a 72-year-old male patient well known to our service with bilateral lower extremity cellulitis and lymphedema. He has had increasing pain, drainage and swelling to his legs, felt to be infected. He has been admitted for further evaluation and treatment. The patient has some pain and some generalized weakness. Denies significant fever or chills. ALLERGIES: NOVOLOG INSULIN, LEVAQUIN, SULFA AND LIPITOR CURRENT MEDICATIONS: Include ferrous sulfate, diclofenac, ergocalciferol and enteric-coated aspirin. PAST MEDICAL HISTORY: Positive for lymphedema, stasis dermatitis and ulcerations, chronic kidney disease, diabetes, gout and hypertension. SOCIAL HISTORY: Negative for alcohol or tobacco use. FAMILY HISTORY: Noncontributory. REVIEW OF SYSTEMS: CONSTITUTIONAL: The patient denies fever, chills, weight loss. NEUROLOGICAL: The patient denies focal weakness. EYES: The patient denied any visual changes, redness or drainage. ENT: The patient denies earache, nasal drainage or sore throat. CARDIOVASCULAR: The patient denies chest pain, palpitations, diaphoresis. PULMONARY: The patient denies cough, short of breath. GASTROINTESTINAL: The patient denies nausea, vomiting or abdominal pain. ORTHOPEDIC: The patient does complain of pain, swelling, drainage, ulceration of bilateral lower extremities. Other systems in a 14-point review of systems are negative. PHYSICAL EXAMINATION: VITAL SIGNS: At this time include temperature is 36.9, pulse 74, respiratory rate of 18, blood pressure 116/48. GENERAL: This is a chronically ill-appearing male patient who appears to be in minimal distress. HEENT: Head normocephalic. Nose and throat are clear. [facility] [address] [place] [address] CONSULTATION Name: AISLINN GONZALEZ Room #: 428-P ADM IN M.R.#: [id number] Admission: 05/25/18 ������������������ Attend Phys: Juan Mayfield MD Discharge: ������������������ Date of : 43 Report #: [id number] NECK: supple. LUNGS: Clear. ABDOMEN: Soft. Bowel sounds present. EXTREMITIES: Demonstrate 3+ edema. Multiples ulcerations and surrounding erythema with some drainage. CLINICAL IMPRESSION: 1. Lymphedema, bilateral lower extremities. 2. Cellulitis with lower extremities. 3. Venous type ulceration, bilateral lower extremities. 4. Diabetes mellitus with hyperglycemia. RECOMMENDATIONS: At this point in time, we will recommend topical wound care with silver alginate followed by compression bandaging and lymphedema therapy from toes to knees bilaterally. Recommend antibiotic therapy, pending cultures and sensitivity. Continue with aggressive nutritional support for maximizing wound healing and maintaining glycemic control. I appreciate being asked to see him in consultation. ��������������������������������������������� <ELECTRONICALLY SIGNED> ���������������������������������������� By: Mike Scott MD ��������������������������������������������� 05/30/18 0758 [id number] Mike Scott MD /nt
[2018-05-30 08:15] VITALS: BP 126/57
--- NOTE | 2018-05-30 09:22 | NUR ---
ASSESMENT COMPLETED. VSS. A/O. DENIES PAIN. NO NOTED SOA. NO NV. LEGS WRAPPED BY LYMPHEDEMA THERAPIST THIS AM. MEDS GIVEN ORDERED TOLERATED WELL. PT RESTING IN BED. WILL CONT. TO MONITOR.
--- NOTE | 2018-05-30 13:18 | NUR ---
WOUND FOLLOW UP: PT. WAS SEEN TODAY BY DR. HUSTON AND MYSELF. PT. LEGS ARE CLINICALLY BETTER TODAY. PT. LYMPEDEMA WRAPS WERE REAPPLIED. PT. TOLERATED WELL. RECOMMENDATIONS: CONTINUE WITH CURRENT PLAN OF CARE. PT. AND STAFF NURSE WERE INSTRUCTED ON PLAN OF CARE.
[2018-05-30] MEDS ORDERED: AUGMENTIN 875-1 EACH PO (15:05)
[2018-05-30 15:41] VITALS: BP 126/57
--- NOTE | 2018-05-30 16:15 | NUR ---
PT. DISCHARGING TODAY TO HOME WITH RESUMPTION OF CARE WITH [facility]. FAXED DC ORDERS/SUMMARY AND SPOKE WITH ADRI IN ADM. SHE RECEIVED DC ORDERS AND WILL NOTIFY PT. OF TIME OF VISITS.
[2018-05-30 17:13] VITALS: BP 126/57
--- NOTE | 2018-05-30 17:55 | NUR ---
PT DCD HOME IN STABLE CONDITION. DC INSTRUCTIONS GIVEN TO PT AND DTR.
== END 2018-05-30 18:01 | disposition home health service (06) | DRG 603 ==
LOC: 4E 12:33
PROVIDERS: ADMIT Hospitalist
DX: L03.116 Cellulitis of left lower limb (principal); L97.929 Non-pressure chronic ulcer of unspecified part of left lower leg with unspecified severity; L03.115 Cellulitis of right lower limb; E78.5 Hyperlipidemia, unspecified; M10.9 Gout, unspecified; M62.84 Sarcopenia; D50.9 Iron deficiency anemia, unspecified; I89.0 Lymphedema, not elsewhere classified; E11.22 Type 2 diabetes mellitus with diabetic chronic kidney disease; E11.65 Type 2 diabetes mellitus with hyperglycemia; I12.9 Hypertensive chronic kidney disease with stage 1 through stage 4 chronic kidney disease, or unspecified chronic kidney disease; N18.3 Chronic kidney disease, stage 3 (moderate); I87.2 Venous insufficiency (chronic) (peripheral); Z88.2 Allergy status to sulfonamides; Z88.1 Allergy status to other antibiotic agents; Z88.8 Allergy status to other drugs, medicaments and biological substances; Z79.84 Long term (current) use of oral hypoglycemic drugs; Z79.4 Long term (current) use of insulin; Z86.14 Personal history of Methicillin resistant Staphylococcus aureus infection
CPT/HCPCS: 10783

== ENCOUNTER → 2018-06-14 | Outpatient (CLI) | payer OTHER ==
[~2018-06-14] MED LIST changes: +AUGMENTIN 875-1 EACH PO; +HUMALOG KW100 UNIT/1 SUBQ
== END ==
LOC: HYPER 07:01
DX: E11.622 Type 2 diabetes mellitus with other skin ulcer (principal); L97.822 Non-pressure chronic ulcer of other part of left lower leg with fat layer exposed; L97.811 Non-pressure chronic ulcer of other part of right lower leg limited to breakdown of skin; L89.313 Pressure ulcer of right buttock, stage 3; L98.411 Non-pressure chronic ulcer of buttock limited to breakdown of skin; E11.51 Type 2 diabetes mellitus with diabetic peripheral angiopathy without gangrene; I87.2 Venous insufficiency (chronic) (peripheral); I89.0 Lymphedema, not elsewhere classified; L84 Corns and callosities; M10.9 Gout, unspecified; E78.5 Hyperlipidemia, unspecified; E66.9 Obesity, unspecified; M19.90 Unspecified osteoarthritis, unspecified site; G47.33 Obstructive sleep apnea (adult) (pediatric); Z68.41 Body mass index [BMI] 40.0-44.9, adult; Z79.4 Long term (current) use of insulin; Z79.84 Long term (current) use of oral hypoglycemic drugs

== ENCOUNTER → 2018-07-05 | Outpatient (CLI) | payer OTHER | LOC: HYPER 06:39 | DX: E11.622 Type 2 diabetes mellitus with other skin ulcer (principal); I87.313 Chronic venous hypertension (idiopathic) with ulcer of bilateral lower extremity; L97.822 Non-pressure chronic ulcer of other part of left lower leg with fat layer exposed; L97.821 Non-pressure chronic ulcer of other part of left lower leg limited to breakdown of skin; L97.511 Non-pressure chronic ulcer of other part of right foot limited to breakdown of skin; E11.621 Type 2 diabetes mellitus with foot ulcer; L89.313 Pressure ulcer of right buttock, stage 3; L98.411 Non-pressure chronic ulcer of buttock limited to breakdown of skin; L89.892 Pressure ulcer of other site, stage 2; E11.51 Type 2 diabetes mellitus with diabetic peripheral angiopathy without gangrene; I89.0 Lymphedema, not elsewhere classified; L84 Corns and callosities; M10.9 Gout, unspecified; E78.5 Hyperlipidemia, unspecified; E66.9 Obesity, unspecified; G47.33 Obstructive sleep apnea (adult) (pediatric); M19.90 Unspecified osteoarthritis, unspecified site; R60.0 Localized edema; Z79.4 Long term (current) use of insulin; Z79.84 Long term (current) use of oral hypoglycemic drugs ==

== ENCOUNTER → 2018-07-19 | Outpatient (CLI) | payer OTHER | LOC: HYPER 06:19 | DX: E11.622 Type 2 diabetes mellitus with other skin ulcer (principal); I87.313 Chronic venous hypertension (idiopathic) with ulcer of bilateral lower extremity; L97.822 Non-pressure chronic ulcer of other part of left lower leg with fat layer exposed; L97.812 Non-pressure chronic ulcer of other part of right lower leg with fat layer exposed; E11.621 Type 2 diabetes mellitus with foot ulcer; L97.512 Non-pressure chronic ulcer of other part of right foot with fat layer exposed; L89.313 Pressure ulcer of right buttock, stage 3; L98.411 Non-pressure chronic ulcer of buttock limited to breakdown of skin; L84 Corns and callosities; I89.0 Lymphedema, not elsewhere classified; E11.51 Type 2 diabetes mellitus with diabetic peripheral angiopathy without gangrene; R60.0 Localized edema; E78.5 Hyperlipidemia, unspecified; E66.9 Obesity, unspecified; G47.33 Obstructive sleep apnea (adult) (pediatric); M10.9 Gout, unspecified; M19.90 Unspecified osteoarthritis, unspecified site; Z79.4 Long term (current) use of insulin; Z79.84 Long term (current) use of oral hypoglycemic drugs ==

== ENCOUNTER → 2018-08-02 | Outpatient (CLI) | payer OTHER | LOC: HYPER 06:58 | DX: E11.622 Type 2 diabetes mellitus with other skin ulcer (principal); L97.812 Non-pressure chronic ulcer of other part of right lower leg with fat layer exposed; L97.822 Non-pressure chronic ulcer of other part of left lower leg with fat layer exposed; L89.313 Pressure ulcer of right buttock, stage 3; L98.411 Non-pressure chronic ulcer of buttock limited to breakdown of skin; E11.621 Type 2 diabetes mellitus with foot ulcer; L97.512 Non-pressure chronic ulcer of other part of right foot with fat layer exposed; I87.313 Chronic venous hypertension (idiopathic) with ulcer of bilateral lower extremity; E11.51 Type 2 diabetes mellitus with diabetic peripheral angiopathy without gangrene; I89.0 Lymphedema, not elsewhere classified; L84 Corns and callosities; M10.9 Gout, unspecified; E78.5 Hyperlipidemia, unspecified; E66.9 Obesity, unspecified; G47.33 Obstructive sleep apnea (adult) (pediatric); R60.0 Localized edema; M19.90 Unspecified osteoarthritis, unspecified site; Z79.4 Long term (current) use of insulin; Z79.84 Long term (current) use of oral hypoglycemic drugs ==

== ENCOUNTER → 2018-08-16 | Outpatient (CLI) | payer OTHER | LOC: HYPER 07:05 | DX: E11.622 Type 2 diabetes mellitus with other skin ulcer (principal); L97.822 Non-pressure chronic ulcer of other part of left lower leg with fat layer exposed; L97.812 Non-pressure chronic ulcer of other part of right lower leg with fat layer exposed; L89.313 Pressure ulcer of right buttock, stage 3; L98.411 Non-pressure chronic ulcer of buttock limited to breakdown of skin; E11.621 Type 2 diabetes mellitus with foot ulcer; L97.512 Non-pressure chronic ulcer of other part of right foot with fat layer exposed; I89.0 Lymphedema, not elsewhere classified; L84 Corns and callosities; I87.2 Venous insufficiency (chronic) (peripheral); M19.90 Unspecified osteoarthritis, unspecified site; E11.51 Type 2 diabetes mellitus with diabetic peripheral angiopathy without gangrene; G47.33 Obstructive sleep apnea (adult) (pediatric); M10.9 Gout, unspecified; E78.5 Hyperlipidemia, unspecified; E66.9 Obesity, unspecified; R60.0 Localized edema; Z79.4 Long term (current) use of insulin; Z79.84 Long term (current) use of oral hypoglycemic drugs; Z68.41 Body mass index [BMI] 40.0-44.9, adult ==

== ENCOUNTER → 2018-08-30 | Outpatient (CLI) | payer OTHER | LOC: HYPER 06:39 | DX: E11.622 Type 2 diabetes mellitus with other skin ulcer (principal); L97.812 Non-pressure chronic ulcer of other part of right lower leg with fat layer exposed; L97.822 Non-pressure chronic ulcer of other part of left lower leg with fat layer exposed; L89.313 Pressure ulcer of right buttock, stage 3; L98.411 Non-pressure chronic ulcer of buttock limited to breakdown of skin; E11.621 Type 2 diabetes mellitus with foot ulcer; L97.512 Non-pressure chronic ulcer of other part of right foot with fat layer exposed; I87.393 Chronic venous hypertension (idiopathic) with other complications of bilateral lower extremity; L84 Corns and callosities; D64.9 Anemia, unspecified; M10.9 Gout, unspecified; E78.5 Hyperlipidemia, unspecified; E66.9 Obesity, unspecified; E11.51 Type 2 diabetes mellitus with diabetic peripheral angiopathy without gangrene; I87.2 Venous insufficiency (chronic) (peripheral); M19.90 Unspecified osteoarthritis, unspecified site; G47.33 Obstructive sleep apnea (adult) (pediatric); R60.0 Localized edema; Z79.4 Long term (current) use of insulin; Z79.84 Long term (current) use of oral hypoglycemic drugs ==

== ENCOUNTER → 2018-09-13 | Outpatient (CLI) | payer OTHER | LOC: HYPER 06:45 | DX: E11.622 Type 2 diabetes mellitus with other skin ulcer (principal); L97.822 Non-pressure chronic ulcer of other part of left lower leg with fat layer exposed; L97.812 Non-pressure chronic ulcer of other part of right lower leg with fat layer exposed; L89.313 Pressure ulcer of right buttock, stage 3; L97.411 Non-pressure chronic ulcer of right heel and midfoot limited to breakdown of skin; E11.621 Type 2 diabetes mellitus with foot ulcer; L97.512 Non-pressure chronic ulcer of other part of right foot with fat layer exposed; I87.393 Chronic venous hypertension (idiopathic) with other complications of bilateral lower extremity; I87.2 Venous insufficiency (chronic) (peripheral); I89.0 Lymphedema, not elsewhere classified; L84 Corns and callosities; E78.5 Hyperlipidemia, unspecified; E66.9 Obesity, unspecified; G47.33 Obstructive sleep apnea (adult) (pediatric); M10.9 Gout, unspecified; M19.90 Unspecified osteoarthritis, unspecified site; R60.0 Localized edema; Z79.4 Long term (current) use of insulin; Z79.84 Long term (current) use of oral hypoglycemic drugs; Z68.41 Body mass index [BMI] 40.0-44.9, adult ==

== ENCOUNTER → 2018-09-27 | Outpatient (CLI) | payer OTHER | LOC: HYPER 07:07 | DX: E11.622 Type 2 diabetes mellitus with other skin ulcer (principal); L97.822 Non-pressure chronic ulcer of other part of left lower leg with fat layer exposed; L97.812 Non-pressure chronic ulcer of other part of right lower leg with fat layer exposed; L89.313 Pressure ulcer of right buttock, stage 3; L98.411 Non-pressure chronic ulcer of buttock limited to breakdown of skin; E11.621 Type 2 diabetes mellitus with foot ulcer; L97.512 Non-pressure chronic ulcer of other part of right foot with fat layer exposed; I87.393 Chronic venous hypertension (idiopathic) with other complications of bilateral lower extremity; E11.51 Type 2 diabetes mellitus with diabetic peripheral angiopathy without gangrene; I89.0 Lymphedema, not elsewhere classified; L84 Corns and callosities; E78.5 Hyperlipidemia, unspecified; E66.9 Obesity, unspecified; M10.9 Gout, unspecified; M19.90 Unspecified osteoarthritis, unspecified site; G47.33 Obstructive sleep apnea (adult) (pediatric); R60.0 Localized edema; Z79.4 Long term (current) use of insulin; Z68.41 Body mass index [BMI] 40.0-44.9, adult; Z79.84 Long term (current) use of oral hypoglycemic drugs ==

== ENCOUNTER → 2018-10-11 | Outpatient (CLI) | payer OTHER | LOC: HYPER 06:50 | DX: E11.621 Type 2 diabetes mellitus with foot ulcer (principal); L97.512 Non-pressure chronic ulcer of other part of right foot with fat layer exposed; E11.622 Type 2 diabetes mellitus with other skin ulcer; L97.812 Non-pressure chronic ulcer of other part of right lower leg with fat layer exposed; L97.822 Non-pressure chronic ulcer of other part of left lower leg with fat layer exposed; L89.313 Pressure ulcer of right buttock, stage 3; L97.411 Non-pressure chronic ulcer of right heel and midfoot limited to breakdown of skin; E11.51 Type 2 diabetes mellitus with diabetic peripheral angiopathy without gangrene; I89.0 Lymphedema, not elsewhere classified; I87.2 Venous insufficiency (chronic) (peripheral); L84 Corns and callosities; M45.2 Ankylosing spondylitis of cervical region; M10.9 Gout, unspecified; E78.5 Hyperlipidemia, unspecified; E66.9 Obesity, unspecified; M19.90 Unspecified osteoarthritis, unspecified site; G47.33 Obstructive sleep apnea (adult) (pediatric); R60.0 Localized edema; Z79.4 Long term (current) use of insulin; Z79.84 Long term (current) use of oral hypoglycemic drugs; Z68.41 Body mass index [BMI] 40.0-44.9, adult ==

== ENCOUNTER → 2018-10-28 | Outpatient (CLI) | payer OTHER | LOC: HYPER 06:47 | DX: E11.622 Type 2 diabetes mellitus with other skin ulcer (principal); L97.822 Non-pressure chronic ulcer of other part of left lower leg with fat layer exposed; L97.812 Non-pressure chronic ulcer of other part of right lower leg with fat layer exposed; L98.411 Non-pressure chronic ulcer of buttock limited to breakdown of skin; L89.313 Pressure ulcer of right buttock, stage 3; E11.621 Type 2 diabetes mellitus with foot ulcer; L97.512 Non-pressure chronic ulcer of other part of right foot with fat layer exposed; E11.51 Type 2 diabetes mellitus with diabetic peripheral angiopathy without gangrene; I89.0 Lymphedema, not elsewhere classified; L84 Corns and callosities; E78.5 Hyperlipidemia, unspecified; E66.9 Obesity, unspecified; M10.9 Gout, unspecified; M19.90 Unspecified osteoarthritis, unspecified site; G47.33 Obstructive sleep apnea (adult) (pediatric); R60.0 Localized edema; Z68.41 Body mass index [BMI] 40.0-44.9, adult; Z79.4 Long term (current) use of insulin; Z79.84 Long term (current) use of oral hypoglycemic drugs ==

== ENCOUNTER → 2018-11-15 | Outpatient (CLI) | payer OTHER | LOC: HYPER 07:23 | DX: E11.621 Type 2 diabetes mellitus with foot ulcer (principal); L97.512 Non-pressure chronic ulcer of other part of right foot with fat layer exposed; E11.622 Type 2 diabetes mellitus with other skin ulcer; L97.812 Non-pressure chronic ulcer of other part of right lower leg with fat layer exposed; L97.822 Non-pressure chronic ulcer of other part of left lower leg with fat layer exposed; I89.0 Lymphedema, not elsewhere classified; L89.313 Pressure ulcer of right buttock, stage 3; I87.2 Venous insufficiency (chronic) (peripheral); L84 Corns and callosities; M10.9 Gout, unspecified; E78.5 Hyperlipidemia, unspecified; E66.9 Obesity, unspecified; M19.90 Unspecified osteoarthritis, unspecified site; R60.0 Localized edema; G47.33 Obstructive sleep apnea (adult) (pediatric); Z79.4 Long term (current) use of insulin; Z79.84 Long term (current) use of oral hypoglycemic drugs; Z68.41 Body mass index [BMI] 40.0-44.9, adult ==

== ENCOUNTER → 2018-11-30 | Outpatient (CLI) | payer OTHER | LOC: HYPER 11:30 | DX: I87.333 Chronic venous hypertension (idiopathic) with ulcer and inflammation of bilateral lower extremity (principal); E11.621 Type 2 diabetes mellitus with foot ulcer; L97.512 Non-pressure chronic ulcer of other part of right foot with fat layer exposed; E11.622 Type 2 diabetes mellitus with other skin ulcer; L97.812 Non-pressure chronic ulcer of other part of right lower leg with fat layer exposed; L97.822 Non-pressure chronic ulcer of other part of left lower leg with fat layer exposed; L97.212 Non-pressure chronic ulcer of right calf with fat layer exposed; L89.313 Pressure ulcer of right buttock, stage 3; L98.411 Non-pressure chronic ulcer of buttock limited to breakdown of skin; I89.0 Lymphedema, not elsewhere classified; L84 Corns and callosities; E11.51 Type 2 diabetes mellitus with diabetic peripheral angiopathy without gangrene; M10.9 Gout, unspecified; E78.5 Hyperlipidemia, unspecified; G47.33 Obstructive sleep apnea (adult) (pediatric); M19.90 Unspecified osteoarthritis, unspecified site; E66.9 Obesity, unspecified; Z68.41 Body mass index [BMI] 40.0-44.9, adult; Z79.4 Long term (current) use of insulin ==

== ENCOUNTER → 2018-12-20 | Outpatient (CLI) | payer OTHER | LOC: HYPER 14:30 | DX: E11.622 Type 2 diabetes mellitus with other skin ulcer (principal); L97.212 Non-pressure chronic ulcer of right calf with fat layer exposed; L97.822 Non-pressure chronic ulcer of other part of left lower leg with fat layer exposed; L97.411 Non-pressure chronic ulcer of right heel and midfoot limited to breakdown of skin; L89.313 Pressure ulcer of right buttock, stage 3; E11.621 Type 2 diabetes mellitus with foot ulcer; L97.512 Non-pressure chronic ulcer of other part of right foot with fat layer exposed; I87.393 Chronic venous hypertension (idiopathic) with other complications of bilateral lower extremity; E11.51 Type 2 diabetes mellitus with diabetic peripheral angiopathy without gangrene; I89.0 Lymphedema, not elsewhere classified; L84 Corns and callosities; M10.9 Gout, unspecified; E78.5 Hyperlipidemia, unspecified; E66.9 Obesity, unspecified; M19.90 Unspecified osteoarthritis, unspecified site; G47.33 Obstructive sleep apnea (adult) (pediatric); R60.0 Localized edema; Z79.4 Long term (current) use of insulin; Z79.84 Long term (current) use of oral hypoglycemic drugs; Z68.41 Body mass index [BMI] 40.0-44.9, adult ==

== ENCOUNTER → 2019-01-04 | Outpatient (CLI) | payer OTHER | LOC: HYPER 12:29 | DX: E11.622 Type 2 diabetes mellitus with other skin ulcer (principal); I87.313 Chronic venous hypertension (idiopathic) with ulcer of bilateral lower extremity; L97.822 Non-pressure chronic ulcer of other part of left lower leg with fat layer exposed; L97.812 Non-pressure chronic ulcer of other part of right lower leg with fat layer exposed; L97.211 Non-pressure chronic ulcer of right calf limited to breakdown of skin; L89.313 Pressure ulcer of right buttock, stage 3; L98.411 Non-pressure chronic ulcer of buttock limited to breakdown of skin; E11.621 Type 2 diabetes mellitus with foot ulcer; L97.512 Non-pressure chronic ulcer of other part of right foot with fat layer exposed; L84 Corns and callosities; I89.0 Lymphedema, not elsewhere classified; E11.51 Type 2 diabetes mellitus with diabetic peripheral angiopathy without gangrene; E78.5 Hyperlipidemia, unspecified; E66.9 Obesity, unspecified; R60.0 Localized edema; G47.33 Obstructive sleep apnea (adult) (pediatric); M10.9 Gout, unspecified; M19.90 Unspecified osteoarthritis, unspecified site; Z79.4 Long term (current) use of insulin; Z79.84 Long term (current) use of oral hypoglycemic drugs; Z86.12 Personal history of poliomyelitis; Z68.41 Body mass index [BMI] 40.0-44.9, adult ==

== ENCOUNTER → 2019-01-18 | Outpatient (CLI) | payer OTHER | LOC: HYPER 16:51 | DX: E11.621 Type 2 diabetes mellitus with foot ulcer (principal); L97.512 Non-pressure chronic ulcer of other part of right foot with fat layer exposed; I87.313 Chronic venous hypertension (idiopathic) with ulcer of bilateral lower extremity; E11.622 Type 2 diabetes mellitus with other skin ulcer; L97.822 Non-pressure chronic ulcer of other part of left lower leg with fat layer exposed; L97.812 Non-pressure chronic ulcer of other part of right lower leg with fat layer exposed; L97.211 Non-pressure chronic ulcer of right calf limited to breakdown of skin; L97.221 Non-pressure chronic ulcer of left calf limited to breakdown of skin; L84 Corns and callosities; I89.0 Lymphedema, not elsewhere classified; E11.51 Type 2 diabetes mellitus with diabetic peripheral angiopathy without gangrene; E78.5 Hyperlipidemia, unspecified; E66.9 Obesity, unspecified; G47.33 Obstructive sleep apnea (adult) (pediatric); R60.0 Localized edema; M10.9 Gout, unspecified; M19.90 Unspecified osteoarthritis, unspecified site; Z79.4 Long term (current) use of insulin; Z79.84 Long term (current) use of oral hypoglycemic drugs; Z86.12 Personal history of poliomyelitis; Z68.41 Body mass index [BMI] 40.0-44.9, adult ==

== ENCOUNTER → 2019-02-06 | Outpatient (CLI) | payer OTHER | LOC: HYPER 14:10 | DX: E11.621 Type 2 diabetes mellitus with foot ulcer (principal); L97.512 Non-pressure chronic ulcer of other part of right foot with fat layer exposed; E11.622 Type 2 diabetes mellitus with other skin ulcer; L97.212 Non-pressure chronic ulcer of right calf with fat layer exposed; L97.222 Non-pressure chronic ulcer of left calf with fat layer exposed; I87.393 Chronic venous hypertension (idiopathic) with other complications of bilateral lower extremity; E11.51 Type 2 diabetes mellitus with diabetic peripheral angiopathy without gangrene; I89.0 Lymphedema, not elsewhere classified; L84 Corns and callosities; D64.9 Anemia, unspecified; M10.9 Gout, unspecified; E78.5 Hyperlipidemia, unspecified; E66.9 Obesity, unspecified; G47.33 Obstructive sleep apnea (adult) (pediatric); M19.90 Unspecified osteoarthritis, unspecified site; R60.0 Localized edema; Z79.4 Long term (current) use of insulin; Z79.84 Long term (current) use of oral hypoglycemic drugs ==

== ENCOUNTER → 2019-02-20 | Outpatient (CLI) | payer OTHER | LOC: HYPER 08:18 | DX: E11.621 Type 2 diabetes mellitus with foot ulcer (principal); L97.512 Non-pressure chronic ulcer of other part of right foot with fat layer exposed; E11.622 Type 2 diabetes mellitus with other skin ulcer; I87.313 Chronic venous hypertension (idiopathic) with ulcer of bilateral lower extremity; L97.822 Non-pressure chronic ulcer of other part of left lower leg with fat layer exposed; L97.812 Non-pressure chronic ulcer of other part of right lower leg with fat layer exposed; L97.211 Non-pressure chronic ulcer of right calf limited to breakdown of skin; L97.221 Non-pressure chronic ulcer of left calf limited to breakdown of skin; L84 Corns and callosities; I89.0 Lymphedema, not elsewhere classified; R60.0 Localized edema; E11.51 Type 2 diabetes mellitus with diabetic peripheral angiopathy without gangrene; E66.9 Obesity, unspecified; E78.5 Hyperlipidemia, unspecified; G47.33 Obstructive sleep apnea (adult) (pediatric); M10.9 Gout, unspecified; M19.90 Unspecified osteoarthritis, unspecified site; Z86.12 Personal history of poliomyelitis; Z79.4 Long term (current) use of insulin; Z79.84 Long term (current) use of oral hypoglycemic drugs ==

== ENCOUNTER → 2019-03-06 | Outpatient (CLI) | payer OTHER | LOC: HYPER 12:03 | DX: I87.333 Chronic venous hypertension (idiopathic) with ulcer and inflammation of bilateral lower extremity (principal); E11.622 Type 2 diabetes mellitus with other skin ulcer; L97.222 Non-pressure chronic ulcer of left calf with fat layer exposed; L97.212 Non-pressure chronic ulcer of right calf with fat layer exposed; L97.822 Non-pressure chronic ulcer of other part of left lower leg with fat layer exposed; L97.812 Non-pressure chronic ulcer of other part of right lower leg with fat layer exposed; E11.621 Type 2 diabetes mellitus with foot ulcer; L97.512 Non-pressure chronic ulcer of other part of right foot with fat layer exposed; B95.8 Unspecified staphylococcus as the cause of diseases classified elsewhere; I89.0 Lymphedema, not elsewhere classified; L84 Corns and callosities; E11.51 Type 2 diabetes mellitus with diabetic peripheral angiopathy without gangrene; E78.5 Hyperlipidemia, unspecified; E11.69 Type 2 diabetes mellitus with other specified complication; M86.9 Osteomyelitis, unspecified; M10.9 Gout, unspecified; M19.90 Unspecified osteoarthritis, unspecified site; G47.33 Obstructive sleep apnea (adult) (pediatric); E66.9 Obesity, unspecified; Z68.41 Body mass index [BMI] 40.0-44.9, adult; Z79.82 Long term (current) use of aspirin; Z79.01 Long term (current) use of anticoagulants; Z79.4 Long term (current) use of insulin ==

== ENCOUNTER → 2019-03-20 | Outpatient (CLI) | payer OTHER | LOC: HYPER 12:51 | DX: I87.333 Chronic venous hypertension (idiopathic) with ulcer and inflammation of bilateral lower extremity (principal); E11.622 Type 2 diabetes mellitus with other skin ulcer; L97.222 Non-pressure chronic ulcer of left calf with fat layer exposed; L97.212 Non-pressure chronic ulcer of right calf with fat layer exposed; E11.621 Type 2 diabetes mellitus with foot ulcer; L97.512 Non-pressure chronic ulcer of other part of right foot with fat layer exposed; B95.8 Unspecified staphylococcus as the cause of diseases classified elsewhere; I89.0 Lymphedema, not elsewhere classified; L84 Corns and callosities; E11.51 Type 2 diabetes mellitus with diabetic peripheral angiopathy without gangrene; M10.9 Gout, unspecified; E78.5 Hyperlipidemia, unspecified; E66.9 Obesity, unspecified; G47.30 Sleep apnea, unspecified; Z68.41 Body mass index [BMI] 40.0-44.9, adult; Z79.82 Long term (current) use of aspirin; Z79.4 Long term (current) use of insulin ==

== ENCOUNTER → 2019-04-03 | Outpatient (CLI) | payer OTHER | LOC: HYPER 13:08 | DX: I87.333 Chronic venous hypertension (idiopathic) with ulcer and inflammation of bilateral lower extremity (principal); E11.622 Type 2 diabetes mellitus with other skin ulcer; L97.222 Non-pressure chronic ulcer of left calf with fat layer exposed; L97.812 Non-pressure chronic ulcer of other part of right lower leg with fat layer exposed; E11.621 Type 2 diabetes mellitus with foot ulcer; L97.512 Non-pressure chronic ulcer of other part of right foot with fat layer exposed; E11.51 Type 2 diabetes mellitus with diabetic peripheral angiopathy without gangrene; I89.0 Lymphedema, not elsewhere classified; L84 Corns and callosities; B95.8 Unspecified staphylococcus as the cause of diseases classified elsewhere; M10.9 Gout, unspecified; E78.5 Hyperlipidemia, unspecified; M19.90 Unspecified osteoarthritis, unspecified site; E11.69 Type 2 diabetes mellitus with other specified complication; A80.9 Acute poliomyelitis, unspecified; E66.9 Obesity, unspecified; G47.33 Obstructive sleep apnea (adult) (pediatric); Z68.41 Body mass index [BMI] 40.0-44.9, adult; Z79.82 Long term (current) use of aspirin; Z79.4 Long term (current) use of insulin ==

== ENCOUNTER → 2019-04-17 | Outpatient (CLI) | payer OTHER | LOC: HYPER 14:36 | DX: I87.333 Chronic venous hypertension (idiopathic) with ulcer and inflammation of bilateral lower extremity (principal); E11.622 Type 2 diabetes mellitus with other skin ulcer; L97.822 Non-pressure chronic ulcer of other part of left lower leg with fat layer exposed; L97.812 Non-pressure chronic ulcer of other part of right lower leg with fat layer exposed; L97.221 Non-pressure chronic ulcer of left calf limited to breakdown of skin; E11.621 Type 2 diabetes mellitus with foot ulcer; L97.512 Non-pressure chronic ulcer of other part of right foot with fat layer exposed; B95.8 Unspecified staphylococcus as the cause of diseases classified elsewhere; E11.51 Type 2 diabetes mellitus with diabetic peripheral angiopathy without gangrene; I89.0 Lymphedema, not elsewhere classified; L84 Corns and callosities; M10.9 Gout, unspecified; E78.5 Hyperlipidemia, unspecified; G47.33 Obstructive sleep apnea (adult) (pediatric); M19.90 Unspecified osteoarthritis, unspecified site; E11.69 Type 2 diabetes mellitus with other specified complication; A80.9 Acute poliomyelitis, unspecified; M47.892 Other spondylosis, cervical region; E66.9 Obesity, unspecified; Z68.41 Body mass index [BMI] 40.0-44.9, adult; Z79.4 Long term (current) use of insulin; Z79.82 Long term (current) use of aspirin ==

== ENCOUNTER → 2019-05-01 | Outpatient (CLI) | payer OTHER | LOC: HYPER 11:30 | DX: E11.622 Type 2 diabetes mellitus with other skin ulcer (principal); L97.812 Non-pressure chronic ulcer of other part of right lower leg with fat layer exposed; L97.221 Non-pressure chronic ulcer of left calf limited to breakdown of skin; I87.393 Chronic venous hypertension (idiopathic) with other complications of bilateral lower extremity; E11.621 Type 2 diabetes mellitus with foot ulcer; L97.512 Non-pressure chronic ulcer of other part of right foot with fat layer exposed; I89.0 Lymphedema, not elsewhere classified; L84 Corns and callosities; R60.0 Localized edema; Z79.4 Long term (current) use of insulin; Z79.84 Long term (current) use of oral hypoglycemic drugs; E11.51 Type 2 diabetes mellitus with diabetic peripheral angiopathy without gangrene; I87.2 Venous insufficiency (chronic) (peripheral); M10.9 Gout, unspecified; E78.5 Hyperlipidemia, unspecified; M19.90 Unspecified osteoarthritis, unspecified site; E66.01 Morbid (severe) obesity due to excess calories; G47.00 Insomnia, unspecified; M47.812 Spondylosis without myelopathy or radiculopathy, cervical region; Z86.12 Personal history of poliomyelitis ==

== ENCOUNTER → 2019-05-15 | Outpatient (CLI) | payer OTHER | LOC: HYPER 13:13 | DX: I87.333 Chronic venous hypertension (idiopathic) with ulcer and inflammation of bilateral lower extremity (principal); E11.622 Type 2 diabetes mellitus with other skin ulcer; L97.822 Non-pressure chronic ulcer of other part of left lower leg with fat layer exposed; L97.812 Non-pressure chronic ulcer of other part of right lower leg with fat layer exposed; L97.221 Non-pressure chronic ulcer of left calf limited to breakdown of skin; E11.621 Type 2 diabetes mellitus with foot ulcer; L97.512 Non-pressure chronic ulcer of other part of right foot with fat layer exposed; I89.0 Lymphedema, not elsewhere classified; E11.51 Type 2 diabetes mellitus with diabetic peripheral angiopathy without gangrene; R60.0 Localized edema; L84 Corns and callosities; B95.8 Unspecified staphylococcus as the cause of diseases classified elsewhere; M47.892 Other spondylosis, cervical region; M10.9 Gout, unspecified; E78.5 Hyperlipidemia, unspecified; G47.33 Obstructive sleep apnea (adult) (pediatric); M19.90 Unspecified osteoarthritis, unspecified site; E66.9 Obesity, unspecified; Z86.12 Personal history of poliomyelitis; Z68.36 Body mass index [BMI] 36.0-36.9, adult; Z79.4 Long term (current) use of insulin; Z79.82 Long term (current) use of aspirin ==

== ENCOUNTER → 2019-05-29 | Outpatient (CLI) | payer OTHER | LOC: HYPER 10:35 | DX: E11.622 Type 2 diabetes mellitus with other skin ulcer (principal); I87.313 Chronic venous hypertension (idiopathic) with ulcer of bilateral lower extremity; L97.822 Non-pressure chronic ulcer of other part of left lower leg with fat layer exposed; L97.812 Non-pressure chronic ulcer of other part of right lower leg with fat layer exposed; L97.221 Non-pressure chronic ulcer of left calf limited to breakdown of skin; E11.621 Type 2 diabetes mellitus with foot ulcer; L97.512 Non-pressure chronic ulcer of other part of right foot with fat layer exposed; L84 Corns and callosities; R60.0 Localized edema; I89.0 Lymphedema, not elsewhere classified; B95.8 Unspecified staphylococcus as the cause of diseases classified elsewhere; E11.51 Type 2 diabetes mellitus with diabetic peripheral angiopathy without gangrene; E78.5 Hyperlipidemia, unspecified; E66.9 Obesity, unspecified; G47.33 Obstructive sleep apnea (adult) (pediatric); M10.9 Gout, unspecified; M19.90 Unspecified osteoarthritis, unspecified site; Z79.4 Long term (current) use of insulin; Z79.84 Long term (current) use of oral hypoglycemic drugs; Z86.12 Personal history of poliomyelitis ==

== ENCOUNTER → 2019-06-05 | Outpatient (CLI) | payer OTHER | LOC: HYPER 13:25 | DX: E11.622 Type 2 diabetes mellitus with other skin ulcer (principal); I87.313 Chronic venous hypertension (idiopathic) with ulcer of bilateral lower extremity; L97.822 Non-pressure chronic ulcer of other part of left lower leg with fat layer exposed; L97.812 Non-pressure chronic ulcer of other part of right lower leg with fat layer exposed; E11.621 Type 2 diabetes mellitus with foot ulcer; L97.512 Non-pressure chronic ulcer of other part of right foot with fat layer exposed; L84 Corns and callosities; I89.0 Lymphedema, not elsewhere classified; E11.51 Type 2 diabetes mellitus with diabetic peripheral angiopathy without gangrene; E78.5 Hyperlipidemia, unspecified; E66.9 Obesity, unspecified; R60.0 Localized edema; B95.8 Unspecified staphylococcus as the cause of diseases classified elsewhere; G47.33 Obstructive sleep apnea (adult) (pediatric); M10.9 Gout, unspecified; M19.90 Unspecified osteoarthritis, unspecified site; Z79.4 Long term (current) use of insulin; Z79.84 Long term (current) use of oral hypoglycemic drugs; Z86.12 Personal history of poliomyelitis ==

== ENCOUNTER → 2019-06-12 | Outpatient (CLI) | payer OTHER | LOC: HYPER 10:22 | DX: I87.313 Chronic venous hypertension (idiopathic) with ulcer of bilateral lower extremity (principal); E11.622 Type 2 diabetes mellitus with other skin ulcer; L97.812 Non-pressure chronic ulcer of other part of right lower leg with fat layer exposed; L97.822 Non-pressure chronic ulcer of other part of left lower leg with fat layer exposed; E11.621 Type 2 diabetes mellitus with foot ulcer; L97.512 Non-pressure chronic ulcer of other part of right foot with fat layer exposed; B95.8 Unspecified staphylococcus as the cause of diseases classified elsewhere; I89.0 Lymphedema, not elsewhere classified; L84 Corns and callosities; E11.51 Type 2 diabetes mellitus with diabetic peripheral angiopathy without gangrene; M47.892 Other spondylosis, cervical region; M10.9 Gout, unspecified; E78.5 Hyperlipidemia, unspecified; M19.90 Unspecified osteoarthritis, unspecified site; E11.69 Type 2 diabetes mellitus with other specified complication; A80.9 Acute poliomyelitis, unspecified; G47.33 Obstructive sleep apnea (adult) (pediatric); E66.9 Obesity, unspecified; Z68.36 Body mass index [BMI] 36.0-36.9, adult; Z79.4 Long term (current) use of insulin; Z79.82 Long term (current) use of aspirin ==

== ENCOUNTER → 2019-06-19 | Outpatient (CLI) | payer OTHER | LOC: HYPER 14:34 | DX: I87.313 Chronic venous hypertension (idiopathic) with ulcer of bilateral lower extremity (principal); E11.622 Type 2 diabetes mellitus with other skin ulcer; L97.822 Non-pressure chronic ulcer of other part of left lower leg with fat layer exposed; L97.812 Non-pressure chronic ulcer of other part of right lower leg with fat layer exposed; E11.621 Type 2 diabetes mellitus with foot ulcer; L97.512 Non-pressure chronic ulcer of other part of right foot with fat layer exposed; I89.0 Lymphedema, not elsewhere classified; L84 Corns and callosities; B95.8 Unspecified staphylococcus as the cause of diseases classified elsewhere; M47.812 Spondylosis without myelopathy or radiculopathy, cervical region; M10.9 Gout, unspecified; E78.5 Hyperlipidemia, unspecified; E11.51 Type 2 diabetes mellitus with diabetic peripheral angiopathy without gangrene; M19.90 Unspecified osteoarthritis, unspecified site; E66.9 Obesity, unspecified; G47.33 Obstructive sleep apnea (adult) (pediatric); Z68.36 Body mass index [BMI] 36.0-36.9, adult; Z79.4 Long term (current) use of insulin; Z79.82 Long term (current) use of aspirin ==

== ENCOUNTER 2019-06-26 06:53 | Inpatient (IN) | payer OTHER ==
[2019-06-26] VITALS (32 sets, daily range): BP systolic 85–120; BP diastolic 27–51
[~2019-06-26] VITALS: Ht 162.6 cm; Wt 98.0 kg
[2019-06-26 07:32] LABS: ABSOLUTE NEUTROPHILS 17.4 thou/uL (1.4-8.2); BASOPHILS 0.1 % (0.0-2.0); EOSINOPHILS 0.1 % (0.0-3.0); HEMATOCRIT 27.4 % (42.0-52.0); HEMOGLOBIN 8.8 gm/dL (14.0-18.0); LYMPHOCYTES 1.8 % (24.0-44.0); MCH 31.2 pg (26.0-34.0); MCV 97.5 fL (80.0-100.0); MONOCYTES 4.3 % (1.0-8.0); POLYS 93.7 % (36.0-66.0); RBC 2.81 mil/uL (4.50-6.00); RDW 17.3 % (10.5-14.5); WBC 18.5 thou/uL (4.0-11.0)
[2019-06-26 07:39] LABS: CREATININE 1.5 mg/dL (0.7-1.3); POTASSIUM 5.3 mmol/L (3.5-5.1)
[2019-06-26 07:44] LABS: APTT 27.6 Seconds (24.5-32.8); INR 1.4; PROTIME 14.3 Seconds (9.3-11.4)
[2019-06-26 07:49] LABS: ALBUMIN 2.4 g/dL (3.4-5.0); MAGNESIUM 1.6 mg/dL (1.8-2.4); TOTAL BILIRUBIN 0.5 mg/dL (<0.1-1.0); TOTAL PROTEIN 7.7 g/dL (6.4-8.2); TROPONIN-I 0.21 ng/mL (<0.06)
[2019-06-26 07:55] LABS: URINE BILIRUBIN NEGATIVE (Negative); URINE BLOOD NEGATIVE (Negative); URINE CLARITY CLEAR; URINE COLOR YELLOW; URINE GLUCOSE-RANDOM* NEGATIVE (Negative); URINE KETONES NEGATIVE (Negative); URINE LEUKOCYTES-REFLEX NEGATIVE (Negative); URINE NITRITE-REFLEX NEGATIVE (Negative); URINE PROTEIN (DIPSTICK) NEGATIVE (Negative); URINE SPECIFIC GRAVITY 1.015 (1.005-1.035); URINE UROBILINOGEN 0.2 E.U./dl (0.2-1.0)
[2019-06-26 07:57] LABS: BE(vivo) -7.6 mmol/L (-2 to +3); HCO3 15.5 mmol/L (22.0-26.0); PCO2 23.9 mmHg (35.0-45.0); PO2 93.2 mmHg (80.0-100.0); sO2 97.5 % (92.0-98.0)
--- NOTE | 2019-06-26 08:00 | EKG ---
[facility] [place] [address] ELECTROCARDIOGRAM REPORT Name: AISLINN GONZALEZ Room #: PRE [facility]..#: [id number] Admission: Attend Phys: Discharge: Date of : 43 Report #: [id number] THIS REPORT FOR: cc: Phil Berger MD [facility] THIS REPORT FOR: //name// [facility] ED Test Date: 2019-06-26 Test Time: 07:01:12 Pat Name: AISLINN GONZALEZ Department: Room: Gender: M Health Support Specialist: EMMANUEL : 1945 Requested By: Bhanu Montana Order Number: [id number] MD: Phil Berger Measurements Intervals [place] Rate: 133 P: 22 ID: 163 QRS: 69 QRSD: 91 T: -65 QT: 273 QTc: 407 Interpretive Statements Sinus tachycardia with occasional premature ventricular complexes Borderline low voltage Nonspecific ST and T wave abnormality No previous ECGs available for comparison Electronically Signed On 06-26-2019 7:59:12 CDT by Phil Berger [email or web address] <ELECTRONICALLY SIGNED> By: Phil Berger MD, FACC 06/26/19 0759 0701 0 Phil Berger MD, FACC /EPI
[2019-06-26 10:10] LABS: ANISOCYTOSIS 1+; PLATELET COUNT 182 thou/uL (150-400)
[2019-06-26 14:45] LABS: % SATURATION 7 % (20-39); IRON 14 ug/dL (65-175); TIBC 204 ug/dL (250-450)
[2019-06-26 15:25] LABS: FOLIC ACID 44.3 ng/mL (8.6-58.9)
[2019-06-26] MEDS ORDERED: ROSUVASTATIN CA10 MG PO (19:34)
[2019-06-26] MEDS ORDERED: HUMALOG100 UNIT/1 SUBQ (20:07)
[2019-06-26] MEDS ORDERED: TORSEMIDE5 MG PO (20:09)
[2019-06-26] MEDS ORDERED: PROTONIX40 M2 PO (20:10)
[2019-06-26] MEDS ORDERED: BENICAR20 MG PO (20:10)
[2019-06-27] VITALS (37 sets, daily range): BP systolic 47–119; BP diastolic 34–58
[2019-06-27 02:07] LABS: GLYCOHEMOGLOBIN (HGB A1C) 6.7 % (4.8-5.6)
[2019-06-27 06:13] LABS: HEMATOCRIT 26.6 % (42.0-52.0); HEMOGLOBIN 8.4 gm/dL (14.0-18.0); MCH 31.4 pg (26.0-34.0); MCHC 31.6 g/dL (28.0-37.0); MCV 99.4 fL (80.0-100.0); PLATELET COUNT 181 thou/uL (150-400); RBC 2.67 mil/uL (4.50-6.00); RDW 17.8 % (10.5-14.5); WBC 18.4 thou/uL (4.0-11.0)
[2019-06-27 06:31] LABS: CALCIUM 8.1 mg/dL (8.5-10.1); CREATININE 1.4 mg/dL (0.7-1.3); MAGNESIUM 1.6 mg/dL (1.8-2.4); POTASSIUM 4.6 mmol/L (3.5-5.1); TROPONIN-I 0.16 ng/mL (<0.06)
[2019-06-27 09:02] LABS: ABSOLUTE NEUTROPHILS 16.2 thou/uL (1.4-8.2); ANISOCYTOSIS 1+; METAMYELOCYTES 1 %
[2019-06-28 11:08] LABS: CALCIUM 7.7 mg/dL (8.5-10.1); CREATININE 1.4 mg/dL (0.7-1.3); POTASSIUM 4.4 mmol/L (3.5-5.1)
[2019-06-28 18:55] VITALS: BP 134/57
[2019-06-29 03:44] VITALS: BP 134/65
--- NOTE | 2019-06-29 08:47 | 2DMMODE ---
[facility] [place] [address] 2 D/M-MODE ECHOCARDIOGRAM Name: AISLINN GONZALEZ Dev Room #: 439-P ADM IN M.R.#: [id number] Admission: 06/26/19 Attend Phys: Roberto Stiles MD Discharge: Date of : 43 Report #: [id number] THIS REPORT FOR: cc: FAM - Family physician unknown FAM - Family physician unknown Phil Berger MD [facility] ~ APPROVED REPORT Study performed: 06/29/2019 07:25:10 EXAM: Comprehensive 2D, Doppler, and color-flow Echocardiogram Patient Location: Bedside Room #: 439 Status: routine BSA: 2.02 HR: 73 bpm BP: 134/65 mmHg Rhythm: NSR/PVCs Indications Hypotension. Short of air, fever, cough. Hx: DM, HTN. 2D Dimensions RVDd: 36.27 mm IVSd: 10.26 (7-11mm) LVOT Diam: 22.29 (18-24mm) LVDd: 48.77 mm PWd: 8.59 (7-11mm) Ascending Ao: 35.31 (22-36mm) LVDs: 35.11 (25-40mm) Aortic Root: 32.90 mm Volumes Left Atrial Volume (Systole) Single Plane 4CH: 62.37 mL Single Plane 2CH: 71.88 mL LA ESV Index: 36.00 mL/m2 Aortic Valve AoV Peak Carmelo.: 1.55 m/s AO Peak Gr.: 9.63 mmHg LVOT Max P.00 mmHg LVOT Max V: 1.22 m/s GENIA Vmax: 3.08 cm2 Mitral Valve E/A Ratio: 0.8 [facility] [address] [address] 2 D/M-MODE ECHOCARDIOGRAM Name: AISLINN GONZALEZ Dev Room #: 439-P [facility] IN [facility]#: [id number] Admission: 06/26/19 Attend Phys: Jacob Hwang Discharge: Date of : 43 Report #: [id number] MV Decel. Time: 285.80 ms MV E Max Carmelo.: 0.54 m/s MV A Carmelo.: 0.64 m/s MV PHT: 82.88 ms IVRT: 55.36 ms Pulmonary Valve PV Peak Carmelo.: 1.23 m/s PV Peak Gr.: 6.07 mmHg Pulmonary Vein P Vein S: 0.53 m/s P Vein A: 0.38 m/s P Vein D: 0.62 m/s P Vein A Dur.: 103.8 msec P Vein S/D Ratio: 0.85 Tricuspid Valve RAP Estimate: 5.00 mmHg Left Ventricle The left ventricle is normal size. There is normal LV segmental wall motion. There is normal left ventricular wall thickness. Left ventricular systolic function is normal. LVEF is 55-60%. Mild diastolic dysfunction is present (impaired relaxation pattern). Right Ventricle The right ventricle is normal size. The right ventricular systolic function is normal. Atria Left atrium is at the upper limits of normal. The right atrium size is normal. Aortic Valve The aortic valve is normal in structure. No aortic regurgitation is present. There is no aortic valvular stenosis. Mitral Valve The mitral valve is normal in structure. There is no mitral valve regurgitation noted. No evidence of mitral valve stenosis. Tricuspid Valve The tricuspid valve is normal in structure. There is no tricuspid valve regurgitation noted. Unable to assess PA pressure. Pulmonic Valve The pulmonary valve is normal in structure. Mild pulmonic [facility] [address] [place] [address] 2 D/M-MODE ECHOCARDIOGRAM Name: AISLINN GONZALEZ Room #: 439-P [facility] IN .R.#: [id number] Admission: 06/26/19 Attend Phys: Jacob Hwang Discharge: Date of : 41 Report #: [id number] regurgitation. Great Vessels The aortic root is normal in size. The ascending aorta is normal in size. IVC is normal in size and collapses >50% with inspiration. Pericardium There is no pericardial effusion. <Conclusion> Left ventricular systolic function is normal. There is normal LV segmental wall motion. LVEF is 55-60%. Mild diastolic dysfunction The aortic valve is normal in structure. No aortic regurgitation or stenosis The mitral valve is normal in structure. No mitral valve regurgitation. Unable to assess pulmonary artery pressure. There is no pericardial effusion. <ELECTRONICALLY SIGNED> By: Phil Berger MD, FACC 06/29/19844 4 4 Phil Berger MD, FACC /INF
[2019-06-29 16:30] VITALS: BP 117/46
[2019-06-29 19:37] VITALS: BP 118/55
[2019-06-30 03:37] VITALS: BP 127/59
[2019-06-30 05:30] LABS: ABSOLUTE NEUTROPHILS 3.7 thou/uL (1.4-8.2); BASOPHILS 1.1 % (0.0-2.0); HEMATOCRIT 26.4 % (42.0-52.0); HEMOGLOBIN 8.5 gm/dL (14.0-18.0); LYMPHOCYTES 20.4 % (24.0-44.0); MCH 31.4 pg (26.0-34.0); MCHC 32.2 g/dL (28.0-37.0); MCV 97.5 fL (80.0-100.0); MONOCYTES 8.8 % (1.0-8.0); PLATELET COUNT 184 thou/uL (150-400); POLYS 63.7 % (36.0-66.0); RDW 17.2 % (10.5-14.5); WBC 5.8 thou/uL (4.0-11.0)
[2019-06-30 05:54] LABS: CALCIUM 8.5 mg/dL (8.5-10.1); CREATININE 1.2 mg/dL (0.7-1.3)
[2019-06-30 07:40] VITALS: BP 118/43
[2019-06-30] MEDS ORDERED: LASIX 40 MG TAB40 MG PO (13:16)
[2019-06-30] MEDS ORDERED: MAGNESIUM400 MG PO (13:16)
--- NOTE | 2019-06-30 18:28 | HC ---
[facility] [place] [address] CONSULTATION Name: AISLINN GONZALEZ Room #: 439-P [facility] IN M.R.#: [id number] Admission: 06/26/19 Attend Phys: Roberto Stiles MD Discharge: 06/30/19 Date of : 41 Report #: [id number] THIS REPORT FOR: cc: FAM - Family physician unknown FAM - Family physician unknown Mike Scott MD ~ CC: Roberto Ferrer [facility] unknown Justen Castañeda DATE OF SERVICE: 06/26/2019 CHIEF COMPLAINT: Bilateral lower extremity ulcerations. HISTORY OF PRESENT ILLNESS: This is a 73-year-old male patient with whom we have followed both in the hospital and as an outpatient with bilateral lower extremity lymphedema and venous type ulcers on his legs. He has had a slow difficult time healing. He is undergoing lymphedema therapy and compression bandaging has been slowly improving. He is admitted to the hospital and is in the intensive care unit with fever and generalized weakness. He denies any shortness of breath or cough or urinary symptoms at present. PAST MEDICAL HISTORY: Positive for hypertension, type 2 diabetes mellitus, bilateral lymphedema, chronic kidney disease, stasis dermatitis and ulcerations and recurring lower extremity cellulitis. SOCIAL HISTORY: Negative for alcohol or tobacco use. FAMILY HISTORY: Noncontributory. MEDICATIONS: Augmentin, iron, aspirin, Voltaren gel, Tylenol Extra Strength, ergocalciferol, Lasix, Klor-Con, insulin, allopurinol, ascorbic acid, multivitamin. ALLERGIES: NOVOLOG INSULIN, LEVOFLOXACIN, SULFA AND ATORVASTATIN. REVIEW OF SYSTEMS: CONSTITUTIONAL: The patient does complain of fever, denies chills or weight loss. NEUROLOGICAL: The patient denies focal weakness, numbness or tingling. EYES: The patient denies visual changes, redness, or drainage. ENT: The patient denies earache, nasal drainage or sore throat. CARDIOVASCULAR: The patient denies chest pain, palpitations or diaphoresis. PULMONARY: The patient denies cough or shortness of breath. GASTROINTESTINAL: The patient denies nausea, vomiting, diarrhea or abdominal [address] [address] CONSULTATION Name: AISLINN GONZALEZ Room #: 439-P [facility] IN [facility].#: [id number] Admission: 06/26/19 Attend Phys: Roberto Stiles MD Discharge: 06/30/19 Date of : 41 Report #: [id number]. ORTHOPEDIC: The patient has swelling and some drainage, but not much pain in his lower extremities. Other systems in a 14-point review of systems are negative. PHYSICAL EXAMINATION: VITAL SIGNS: At this time include temperature 36.8, pulse 92, respiratory rate 20, blood pressure 95/37. GENERAL: This is a chronically ill-appearing male patient who appears to be in minimal distress. HEENT: Head normocephalic. Nose and throat are clear. NECK: Supple. LUNGS: Diminished. ABDOMEN: Soft. Bowel sounds present. EXTREMITIES: Lower extremities demonstrate 2-3+ edema. He has multiple ulcerations circling both lower legs bilaterally. These are overall improved. There are a little bit moist today. There does not appear to be grossly infected. Legs really do not appear to be obviously infected at this time. CLINICAL IMPRESSION: 1. Venous type ulcerations, bilateral lower extremities, slowly improving. 2. Severe sepsis. 3. Type 2 diabetes mellitus. 4. Hypertension. RECOMMENDATIONS: At this point in time, we recommend Xeroform, ABD, Kerlix, CYNTHIA wrapped a Wednesday, Wednesday, Wednesday and p.r.n. to both lower extremities. Elevation of his legs. Continuation of current medications. Aggressive nutritional support. I appreciate being asked to see the patient in consultation. <ELECTRONICALLY SIGNED> By: Mike Scott MD 06/30/19 1828 [id number] iMke Scott MD /nt
== END 2019-06-30 16:05 | DRG 871 ==
LOC: ER 06:53 → EROBS 10:13 → ICU 10:13 → 3W 06-28 00:20 → 4S 06-28 17:27
PROVIDERS: Emergency Medicine; Nurse Practitioner; Specialist; ADMIT Hospitalist
DX: A41.9 Sepsis, unspecified organism (principal); R65.21 Severe sepsis with septic shock; E43 Unspecified severe protein-calorie malnutrition; G93.41 Metabolic encephalopathy; L03.116 Cellulitis of left lower limb; L03.115 Cellulitis of right lower limb; N17.9 Acute kidney failure, unspecified; I13.0 Hypertensive heart and chronic kidney disease with heart failure and stage 1 through stage 4 chronic kidney disease, or unspecified chronic kidney disease; I87.2 Venous insufficiency (chronic) (peripheral); E87.5 Hyperkalemia; E11.22 Type 2 diabetes mellitus with diabetic chronic kidney disease; D64.9 Anemia, unspecified; E78.5 Hyperlipidemia, unspecified; I50.9 Heart failure, unspecified; Z20.828 Contact with and (suspected) exposure to other viral communicable diseases; E55.9 Vitamin D deficiency, unspecified; R63.4 Abnormal weight loss; N18.9 Chronic kidney disease, unspecified; M10.9 Gout, unspecified; Z86.14 Personal history of Methicillin resistant Staphylococcus aureus infection; Z79.4 Long term (current) use of insulin; Z88.1 Allergy status to other antibiotic agents; Z88.2 Allergy status to sulfonamides; Z88.7 Allergy status to serum and vaccine; Z79.82 Long term (current) use of aspirin; Z79.899 Other long term (current) drug therapy
CPT/HCPCS: 10078; 10102

== ENCOUNTER 2019-06-30 10:18 | Inpatient (IN) | payer OTHER ==
[~2019-06-30] VITALS: Ht 165.1 cm; Wt 87.3 kg
--- NOTE | ~2019-06-30 | PLAN ---
[facility] [place] [address] [place] [address] REHAB UNIT PLAN OF CARE Name: AISLINN GONZALEZ Room #: 506-1 ADM IN M.R.#: [id number] Admission: 06/30/19 Attend Phys: Kendrick Stephens MD Discharge: Date of : 41 Report #: [id number] THIS REPORT FOR: //name// CC: Kendrick Stephens [facility] unknown DATE OF SERVICE: 07/03/2019 PROGRESS NOTE AND OVERALL PLAN OF CARE SUBJECTIVE: The patient is seen back today in followup. He is in no distress. He is alert, pleasant. Temperature 98.6, pulse 69, respirations 18, and blood pressure 122/45. No focal calf swelling. He needs assistance, especially with sit to stand transfers, which are more of a min-to-mod assist. Once up, he is able to ambulate up to 100 feet front-wheeled walker with contact guard assistance. In occupational therapy, lower body dressing is max assist. In speech therapy, he does have [id number] cognitive deficits, moderate memory deficits. ASSESSMENT: A 73-year-old male with the following problem list: 1. Metabolic encephalopathy, appearing to be improving. Speech therapy is assessing his language and cognition. He is noted to have mild cognitive deficits with tamx-lt-sfwedcon memory deficits. 2. Medical complexity with generalized debilitation. 3. Sepsis, which was noted to resolve. 4. Bilateral pulmonary infiltrates. 5. Lower extremity wounds. 6. Chronic lower extremity edema. 7. Diabetes mellitus type 2. 8. Likely diabetic peripheral neuropathy. 9. Chronic kidney disease. 10. Hypertension. 11. Anemia. PLAN: The overall plan of care is based on the preadmission screen, post-admission physician evaluation and information garnered from therapy assessments. 1. Estimated length of stay is probably 7-10 days. 2. Medical prognosis is reasonably good. 3. Anticipated interventions includes, the interdisciplinary acute inpatient rehabilitation program. 4. Anticipated functional outcomes would be for the patient to become modified independent with transfers, mobility, ADLs, cognition, communication, so the patient hopefully returns back to the home setting. 5. Discharge destination is back to the home setting where he can be with his . [address] [address] REHAB UNIT PLAN OF CARE Name: AISLINN GONZALEZ Room #: 506-1 ADM IN M.R.#: [id number] Admission: 06/30/19 Attend Phys: Kendrick Stephens MD Discharge: Date of : 41 Report #: [id number] 6. Expected therapy by discipline includes PT, OT and speech 1 hour per day each five days a week throughout the duration of the acute inpatient rehabilitation stay. By: [id number] Kendrick Stephens MD /nt
[~2019-06-30 10:18] MED LIST changes: -ALLOPURINOL 30300 M2 PO; +BENICAR20 MG PO; +PROTONIX40 M2 PO; +ROSUVASTATIN CA10 MG PO; +TORSEMIDE5 MG PO; +ZYLOPRIM300 MG PO
[2019-06-30] MEDS ORDERED: MAGNESIUM400 MG PO (13:16)
[2019-06-30] MEDS ORDERED: LASIX 40 MG TAB40 MG PO (13:16)
[2019-06-30 16:53] VITALS: BP 119/49
[2019-06-30 19:39] VITALS: BP 123/51
[2019-07-01 06:02] LABS: HEMATOCRIT 28.2 % (42.0-52.0); HEMOGLOBIN 9.1 gm/dL (14.0-18.0); MCH 31.3 pg (26.0-34.0); MCHC 32.1 g/dL (28.0-37.0); MCV 97.5 fL (80.0-100.0); RBC 2.89 mil/uL (4.50-6.00); RDW 17.4 % (10.5-14.5); WBC 5.1 thou/uL (4.0-11.0)
[2019-07-01 06:11] LABS: CALCIUM 8.8 mg/dL (8.5-10.1); POTASSIUM 4.2 mmol/L (3.5-5.1)
[2019-07-01 08:00] VITALS: BP 133/50
[2019-07-01 20:00] VITALS: BP 148/54
[2019-07-02 07:45] VITALS: BP 133/49
[2019-07-02 19:28] VITALS: BP 122/45
[2019-07-03 09:48] VITALS: BP 112/49
[2019-07-03 20:16] VITALS: BP 130/53
[2019-07-04 08:00] VITALS: BP 130/44
[2019-07-04 19:23] VITALS: BP 111/40
[2019-07-05 06:23] LABS: HEMATOCRIT 27.9 % (42.0-52.0); MCH 31.9 pg (26.0-34.0); MCHC 32.4 g/dL (28.0-37.0); MCV 98.7 fL (80.0-100.0); PLATELET COUNT 195 thou/uL (150-400); RBC 2.83 mil/uL (4.50-6.00); RDW 17.9 % (10.5-14.5); WBC 4.4 thou/uL (4.0-11.0)
[2019-07-05 06:41] LABS: CALCIUM 8.5 mg/dL (8.5-10.1); CREATININE 1.2 mg/dL (0.7-1.3); MAGNESIUM 1.9 mg/dL (1.8-2.4); POTASSIUM 3.9 mmol/L (3.5-5.1)
[2019-07-05 08:00] VITALS: BP 130/46
[2019-07-05 09:11] VITALS: BP 111/40
[2019-07-05 10:43] LABS: ABSOLUTE NEUTROPHILS 2.6 thou/uL (1.4-8.2); ANISOCYTOSIS 1+; MYELOCYTES 1 %
[2019-07-05 19:24] VITALS: BP 134/59
[2019-07-06 08:00] VITALS: BP 130/47
[2019-07-06 19:52] VITALS: BP 128/47
[2019-07-07 09:40] VITALS: BP 130/52
--- NOTE | 2019-07-07 11:52 | H ---
[facility] [place] [address] HISTORY AND PHYSICAL Name: AISLINN GONZALEZ Room #: 506-1 ADM IN M.R.#: [id number] Admission: 06/30/19 Attend Phys: Kendrick Stephens MD Discharge: Date of : 41 Report #: [id number] THIS REPORT FOR: cc: HANSEL - Family physician unknown HANSEL - Family physician unknown Kendrick Stephens MD ~ CC: Kendrick HAMM unknown DATE OF SERVICE: 06/30/2019 HISTORY AND PHYSICAL AND POSTADMISSION PHYSICIAN EVALUATION HISTORY OF PRESENT ILLNESS: The patient is a 73-year-old white male originally admitted to [facility] on 06/26/2019 with weakness and shortness of breath. He was found to be septic and was admitted to the Intensive Care Unit. He was noted to have bilateral pulmonary infiltrates, metabolic encephalopathy, bilateral lower extremity wounds. He was followed closely by the hospitalist, Wound Care, and Infectious Disease. COVID-19 x 2 was negative. He was able to be transferred out of the ICU with septic shock improved, treated with IV antibiotics, local wound care. Respiratory status improved as well as overall improvement of his metabolic encephalopathy. He also has medical complexity with generalized debilitation with a significant decrease in his current functional abilities compared to premorbid. He has now been admitted for acute in-hospital inpatient rehabilitation. PAST MEDICAL HISTORY: Prior medical history. He has a history of bilateral lower extremity lymphedema with chronic wounds. History of gout, chronic kidney disease, lower extremity cellulitis, venous stasis ulcers, hypertension. ALLERGIES: INCLUDE INSULIN, LEVOFLOXACIN, SULFA AND ATORVASTATIN. MEDICATIONS: Please see the full medication listing. SOCIAL HISTORY: Premorbidly living at home with his . He has no assistive device most of the time, but has a walker for intermittent use. He is independent with ADLs and shared IADLs. He was driving short distances. He was managing his own medications and finances at home. REVIEW OF SYSTEMS: No complaints of chest pain, shortness of breath, abdominal discomfort. FAMILY HISTORY: Noncontributory. HABITS: No history of drug or alcohol abuse. [facility] [address] [place] [address] HISTORY AND PHYSICAL Name: AISLINN GONZALEZ Dev Room #: 506-1 [facility] IN ..#: [id number] Admission: 06/30/19 Attend Phys: Kendrick Stephens MD Discharge: Date of : 41 Report #: [id number] PHYSICAL EXAMINATION: GENERAL: The patient was seen later yesterday afternoon was alert, pleasant, and oriented. VITAL SIGNS: Temperature 37, pulse 76, respirations 18, blood pressure 132/50. NEUROLOGIC: He was pleasant. Some latency to his responses. Tends to be somewhat verbose and a bit tangential, but was pleasant, follows commands without difficulty. HEENT: Facies were symmetric. CHEST: Sounded reasonably clear with some diffuse decreased throughout. CARDIOVASCULAR: Regular rate and rhythm. ABDOMEN: Bowel sounds positive, nontender. GENITOURINARY AND RECTAL: Deferred. 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 In his lower extremities, he does have chronic lymphedema with some verrucous changes to his skin. His legs are wrapped. He is able to lift lower extremities a few inches off the bed. He has some decreased range of motion of his hips. He appeared to have reasonable sensation distally. He is mod assist with sit to stand, mod assist to take a couple of steps with a walker. ASSESSMENT: A 73-year-old white male with the following problem list: 1. Metabolic encephalopathy, which appears to be improving. 2. Medical complexity with generalized debilitation. 3. Sepsis noted to resolve. 4. Bilateral pulmonary infiltrates. 5. Lower extremity wounds. 6. Chronic lower extremity lymphedema. 7. Diabetes mellitus type 2. He may have some decreased distal sensation with a likely diabetic peripheral neuropathy. 8. Chronic kidney disease. 9. Hypertension. 10. Anemia. PLAN: The patient has been admitted for acute in-hospital inpatient rehabilitation. From a postadmission physician evaluation perspective, there are no relevant changes since the preadmission screening. Please see the above review of prior and current medical and functional conditions and comorbidities. Please see the patient's previous and current functional status. As far as risk of complications, the patient has multiple medical comorbidities as noted above. Initial plan of care involves the interdisciplinary acute inpatient rehabilitation program. Measurable functional goals would be for the patient to become modified independent with transfers, mobility, ADLs and to improve as far as overall cognition, so that he can return back to his prior living situation. Goal would be for him to be at least independent at the walker level with mobility and ADLs and to improve as far as cognition. Prognosis is reasonably good. Estimated length of stay probably at least 7-10 days, pending progress. [facility] [address] [place] [address] HISTORY AND PHYSICAL Name: AISLINN GONZALEZ Room #: 506-1 [facility] IN M.R.#: [id number] Admission: 06/30/19 Attend Phys: Kendrick Stephens MD Discharge: Date of : 41 Report #: [id number] Potential barriers would include his multiple medical comorbidities and decreased functional status. The patient meets diagnostic criteria for an acute in-hospital inpatient rehabilitation stay. He meets the medical necessity criteria and we will have the multiple storage management consultant physicians continue to follow. He does have the tolerance for therapies and has appropriate discharge goals back to the home setting. <ELECTRONICALLY SIGNED> By: Kendrick Stephens MD 07/07/19 1152 [id number] Kendrick Stephens MD /nt
[2019-07-07 19:10] VITALS: BP 133/65
[2019-07-08 08:04] VITALS: BP 139/52
[2019-07-08 20:09] VITALS: BP 125/63
[2019-07-09 07:57] VITALS: BP 138/75
[2019-07-09 19:43] VITALS: BP 120/58
[2019-07-10 07:30] VITALS: BP 121/64
[2019-07-10 08:53] VITALS: BP 121/64
[2019-07-10 20:23] VITALS: BP 113/57
[2019-07-11 07:20] VITALS: BP 120/57
[2019-07-11 20:00] VITALS: BP 124/58
[2019-07-12 06:37] LABS: HEMATOCRIT 29.1 % (42.0-52.0); HEMOGLOBIN 9.3 gm/dL (14.0-18.0); MCH 31.8 pg (26.0-34.0); MCHC 32.1 g/dL (28.0-37.0); MCV 99.3 fL (80.0-100.0); PLATELET COUNT 179 thou/uL (150-400); RBC 2.93 mil/uL (4.50-6.00); RDW 17.7 % (10.5-14.5); WBC 3.7 thou/uL (4.0-11.0)
[2019-07-12 06:50] LABS: CALCIUM 8.7 mg/dL (8.5-10.1); CREATININE 1.2 mg/dL (0.7-1.3); MAGNESIUM 2.1 mg/dL (1.8-2.4); POTASSIUM 4.1 mmol/L (3.5-5.1)
[2019-07-12 07:09] LABS: ABSOLUTE NEUTROPHILS 1.4 thou/uL (1.4-8.2); ANISOCYTOSIS 1+; ATYPICAL LYMPHS 1 %
[2019-07-12 08:05] VITALS: BP 137/59
[2019-07-12 19:36] VITALS: BP 127/55
[2019-07-13 08:00] VITALS: BP 110/51
[2019-07-13] MEDS ORDERED: ACIDOPHILUS1 EAC4 PO (08:30)
[2019-07-13] MEDS ORDERED: LASIX 40 MG TAB40 MG PO (08:30)
[2019-07-13] MEDS ORDERED: COLACE100 MG PO (08:30)
[2019-07-13] MEDS ORDERED: AMMONIUM LACTA226 GM TOP (08:30)
[2019-07-13] MEDS ORDERED: VITAMIN D325 MCG PO (11:27)
[2019-07-13 19:00] VITALS: BP 127/55
[2019-07-14 08:00] VITALS: BP 115/59
== END 2019-07-14 11:46 | disposition home health service (06) | DRG 70 ==
PROVIDERS: Nurse Practitioner; ADMIT Physical Medicine & Rehabilitation
DX: G93.41 Metabolic encephalopathy (principal); A41.9 Sepsis, unspecified organism; R65.21 Severe sepsis with septic shock; E43 Unspecified severe protein-calorie malnutrition; N17.9 Acute kidney failure, unspecified; E87.2 Acidosis; E44.0 Moderate protein-calorie malnutrition; L97.929 Non-pressure chronic ulcer of unspecified part of left lower leg with unspecified severity; L97.919 Non-pressure chronic ulcer of unspecified part of right lower leg with unspecified severity; I12.9 Hypertensive chronic kidney disease with stage 1 through stage 4 chronic kidney disease, or unspecified chronic kidney disease; N18.9 Chronic kidney disease, unspecified; M10.9 Gout, unspecified; R53.81 Other malaise; E11.22 Type 2 diabetes mellitus with diabetic chronic kidney disease; D64.9 Anemia, unspecified; E87.5 Hyperkalemia; I89.0 Lymphedema, not elsewhere classified; G31.84 Mild cognitive impairment of uncertain or unknown etiology; E55.9 Vitamin D deficiency, unspecified; K59.00 Constipation, unspecified; D72.829 Elevated white blood cell count, unspecified; E78.5 Hyperlipidemia, unspecified; Z68.33 Body mass index [BMI] 33.0-33.9, adult; Z88.2 Allergy status to sulfonamides; Z88.8 Allergy status to other drugs, medicaments and biological substances; Z88.1 Allergy status to other antibiotic agents
CPT/HCPCS: 10112

== ENCOUNTER → 2019-07-26 | Outpatient (CLI) | payer OTHER ==
[~2019-07-26] MED LIST changes: +ACIDOPHILUS1 EAC4 PO; +AMMONIUM LACTA226 GM TOP; +COLACE100 MG PO; +LASIX 40 MG TAB40 MG PO; +MAGNESIUM400 MG PO; +VITAMIN D325 MCG PO
== END ==
LOC: HYPER 13:27
DX: E11.622 Type 2 diabetes mellitus with other skin ulcer (principal); I87.313 Chronic venous hypertension (idiopathic) with ulcer of bilateral lower extremity; L97.822 Non-pressure chronic ulcer of other part of left lower leg with fat layer exposed; L97.812 Non-pressure chronic ulcer of other part of right lower leg with fat layer exposed; E11.621 Type 2 diabetes mellitus with foot ulcer; L97.512 Non-pressure chronic ulcer of other part of right foot with fat layer exposed; L84 Corns and callosities; E11.51 Type 2 diabetes mellitus with diabetic peripheral angiopathy without gangrene; E78.5 Hyperlipidemia, unspecified; E66.9 Obesity, unspecified; I89.0 Lymphedema, not elsewhere classified; R60.0 Localized edema; B95.8 Unspecified staphylococcus as the cause of diseases classified elsewhere; G47.33 Obstructive sleep apnea (adult) (pediatric); M10.9 Gout, unspecified; M19.90 Unspecified osteoarthritis, unspecified site; Z79.4 Long term (current) use of insulin; Z79.84 Long term (current) use of oral hypoglycemic drugs; Z86.12 Personal history of poliomyelitis; Z68.36 Body mass index [BMI] 36.0-36.9, adult

== ENCOUNTER → 2019-08-07 | Outpatient (CLI) | payer OTHER | LOC: HYPER 14:15 | DX: I87.313 Chronic venous hypertension (idiopathic) with ulcer of bilateral lower extremity (principal); E11.622 Type 2 diabetes mellitus with other skin ulcer; L97.822 Non-pressure chronic ulcer of other part of left lower leg with fat layer exposed; L97.812 Non-pressure chronic ulcer of other part of right lower leg with fat layer exposed; E11.621 Type 2 diabetes mellitus with foot ulcer; L97.512 Non-pressure chronic ulcer of other part of right foot with fat layer exposed; E11.51 Type 2 diabetes mellitus with diabetic peripheral angiopathy without gangrene; I89.0 Lymphedema, not elsewhere classified; L84 Corns and callosities; B95.8 Unspecified staphylococcus as the cause of diseases classified elsewhere; M47.812 Spondylosis without myelopathy or radiculopathy, cervical region; M10.9 Gout, unspecified; E78.5 Hyperlipidemia, unspecified; A80.9 Acute poliomyelitis, unspecified; M19.90 Unspecified osteoarthritis, unspecified site; E66.9 Obesity, unspecified; G47.33 Obstructive sleep apnea (adult) (pediatric); Z68.36 Body mass index [BMI] 36.0-36.9, adult; Z79.4 Long term (current) use of insulin ==

== ENCOUNTER → 2019-08-21 | Outpatient (CLI) | payer OTHER | LOC: HYPER 11:00 | PROVIDERS: ATTEND Emergency Medicine | DX: I87.313 Chronic venous hypertension (idiopathic) with ulcer of bilateral lower extremity (principal); E11.622 Type 2 diabetes mellitus with other skin ulcer; L97.822 Non-pressure chronic ulcer of other part of left lower leg with fat layer exposed; L97.812 Non-pressure chronic ulcer of other part of right lower leg with fat layer exposed; E11.621 Type 2 diabetes mellitus with foot ulcer; L97.512 Non-pressure chronic ulcer of other part of right foot with fat layer exposed; B95.8 Unspecified staphylococcus as the cause of diseases classified elsewhere; I89.0 Lymphedema, not elsewhere classified; E11.51 Type 2 diabetes mellitus with diabetic peripheral angiopathy without gangrene; R60.0 Localized edema; L84 Corns and callosities; M47.812 Spondylosis without myelopathy or radiculopathy, cervical region; M10.9 Gout, unspecified; E78.5 Hyperlipidemia, unspecified; M19.90 Unspecified osteoarthritis, unspecified site; E66.9 Obesity, unspecified; G47.33 Obstructive sleep apnea (adult) (pediatric); Z68.36 Body mass index [BMI] 36.0-36.9, adult; Z86.12 Personal history of poliomyelitis; Z79.4 Long term (current) use of insulin; Z79.82 Long term (current) use of aspirin ==

== ENCOUNTER → 2019-09-04 | Outpatient (CLI) | payer OTHER | LOC: HYPER 07:46 | PROVIDERS: ATTEND Emergency Medicine Emergency Medical Services | DX: E11.622 Type 2 diabetes mellitus with other skin ulcer (principal); I87.313 Chronic venous hypertension (idiopathic) with ulcer of bilateral lower extremity; L97.822 Non-pressure chronic ulcer of other part of left lower leg with fat layer exposed; L97.812 Non-pressure chronic ulcer of other part of right lower leg with fat layer exposed; E11.621 Type 2 diabetes mellitus with foot ulcer; L97.512 Non-pressure chronic ulcer of other part of right foot with fat layer exposed; L84 Corns and callosities; I89.0 Lymphedema, not elsewhere classified; R60.0 Localized edema; B95.8 Unspecified staphylococcus as the cause of diseases classified elsewhere; E11.51 Type 2 diabetes mellitus with diabetic peripheral angiopathy without gangrene; E78.5 Hyperlipidemia, unspecified; E66.9 Obesity, unspecified; G47.33 Obstructive sleep apnea (adult) (pediatric); I87.2 Venous insufficiency (chronic) (peripheral); M10.9 Gout, unspecified; M19.90 Unspecified osteoarthritis, unspecified site; Z86.12 Personal history of poliomyelitis; Z79.4 Long term (current) use of insulin; Z79.84 Long term (current) use of oral hypoglycemic drugs; Z68.36 Body mass index [BMI] 36.0-36.9, adult ==

== ENCOUNTER → 2019-09-25 | Outpatient (CLI) | payer OTHER | LOC: HYPER 13:29 | PROVIDERS: ATTEND Emergency Medicine | DX: I87.313 Chronic venous hypertension (idiopathic) with ulcer of bilateral lower extremity (principal); E11.622 Type 2 diabetes mellitus with other skin ulcer; L97.822 Non-pressure chronic ulcer of other part of left lower leg with fat layer exposed; L97.812 Non-pressure chronic ulcer of other part of right lower leg with fat layer exposed; E11.621 Type 2 diabetes mellitus with foot ulcer; L97.512 Non-pressure chronic ulcer of other part of right foot with fat layer exposed; B95.8 Unspecified staphylococcus as the cause of diseases classified elsewhere; I89.0 Lymphedema, not elsewhere classified; R60.0 Localized edema; L84 Corns and callosities; M47.812 Spondylosis without myelopathy or radiculopathy, cervical region; M10.9 Gout, unspecified; E78.5 Hyperlipidemia, unspecified; E66.9 Obesity, unspecified; I73.89 Other specified peripheral vascular diseases; M19.90 Unspecified osteoarthritis, unspecified site; G47.33 Obstructive sleep apnea (adult) (pediatric); Z86.12 Personal history of poliomyelitis; Z68.36 Body mass index [BMI] 36.0-36.9, adult; Z79.4 Long term (current) use of insulin; Z79.82 Long term (current) use of aspirin ==